=== PATIENT | female | born 1995 | race Caucasian/White ===

== ENCOUNTER 2017-12-02 03:55 | Inpatient (IN) | payer OTHER ==
[2017-12-02] MEDS ORDERED: OXYTOCIN/LR 20 UNITS/1,000 ML BAG IV SCH (04:00)
[2017-12-02] MEDS ORDERED: Ringers Lactate 1,000 ML IV SCH ×2 (04:00→05:00)
[2017-12-02] MEDS ORDERED: OXYTOCIN/LR 1,000 ML IV SCH (04:00)
[2017-12-02] MEDS ORDERED: Ringers Lactate 1,000 ML IV PRN ×2 (04:00→04:35)
[2017-12-02] MEDS ORDERED: PENICILLIN 5 MU in NA CHLORIDE 0.9% 100 ML IV ONE (04:00)
[2017-12-02] MEDS ORDERED: Ringers Lactate 1,000 ML IV ONE (04:41)
[2017-12-02] MEDS ORDERED: OXYTOCIN/LR 20 UNIT/1,000 ML BAG IV ONE (04:42)
[2017-12-02 04:54] LABS: RPR Titer ND
[2017-12-02 04:58] LABS: Absolute Lymphocytes (CBC) 2.8 K/uL (0.7-4.9); Absolute Monocytes 0.9 K/uL (0.1-1.3); Basophils % 0.5 % (0-1.3); Eosinophils % 0.8 % (0-4.4); Hematocrit 28.6 % (36.0-45.0); MCH 22.4 pg (27.0-35.0); MCV 72.5 fL (80-100); MPV 10.5 fL (7.6-11.3); RBC Red Blood Cell Count 3.95 M/uL (3.86-4.86)
[2017-12-02] MEDS ORDERED: PROMETHAZINE 25 MG/ML VIAL IM PRN (05:28)
[2017-12-02] MEDS ORDERED: CARBOPROST TROME 250 MCG/ML IM PRN (05:28)
[2017-12-02] MEDS ORDERED: MEPERIDINE HCL 25 MG/0.5 ML IV PRN (05:28)
[2017-12-02] MEDS ORDERED: METHYLERGONOVINE 0.2MG/ML AMP IM PRN (05:28)
[2017-12-02] MEDS ORDERED: BUTORPHANOL 1 MG/ML INJ IV PRN (05:28)
[2017-12-02 05:38] VITALS: BMI 37.8
[2017-12-02 05:48] LABS: Urine Appearance CLOUDY; Urine Bilirubin NEGATIVE (NEG); Urine Blood NEGATIVE (NEG); Urine Color YELLOW; Urine Glucose NEGATIVE (NEG); Urine Microscopic Reflex ORDER UMIC; Urine Protein TRACE (NEG); Urine Specific Gravity 1.025 (1.005-1.030)
[2017-12-02 05:58] LABS: Urine Bacteria >50 /HPF (<20); Urine Culture Reflex Order REFLEXED; Urine Mucus 1+ /HPF (NONE SEEN)
[2017-12-02] MEDS ORDERED: METHYLERGONOVINE 0.2MG/ML AMP IM ONE ×2 (08:55→11:33)
[2017-12-02] MEDS ORDERED: PENICILLIN 2.5 MU in NA CHLORIDE 0.9% 100 ML IV SCH (09:00)
[2017-12-02] MEDS ORDERED: LIDOCAINE 1% 20 ML MDV ONE (09:54)
[2017-12-02] MEDS ORDERED: IBUPROFEN 200 MG TAB PO PRN (10:32)
[2017-12-02] MEDS ORDERED: BISACODYL 10 MG RECTAL SUPP RECT PRN (10:32)
[2017-12-02] MEDS ORDERED: DOCUSATE NA/SENNA CONC 1 TAB PO PRN (10:32)
[2017-12-02] MEDS ORDERED: DIPHENHYDRAMINE 25 MG TAB/CAP PO PRN (10:32)
[2017-12-02] MEDS ORDERED: Oxycodone HCl/Acetaminophen 1 TAB TAB PO PRN (10:32)
[2017-12-02] MEDS ORDERED: ACETAMINOPHEN 500 MG TAB PO PRN (10:32)
[2017-12-02] MEDS ORDERED: OXYTOCIN/LR 20 UNIT/1,000 ML BAG IV SCH (11:00)
--- NOTE | 2017-12-02 12:01 | PREOPHP ---
Date of Admission: 12/02/2017 This is a 21-year-old 3, para 2, 39 weeks gestation 2.5 cm, 50% effaced, vertex, well applied -1 station. Emeterio regularly. FHTs normal, reactive. Rh positive, immune to Rubella. Positi ve beta strep screen. She has received her first dose of penicillin. Rupture of membranes, clear fl uid. The patient was trying to go natural although she may change her mind, and she knows she has th e ability to do so. She will probably request IV analgesics but wishes to try to avoid epidural. Ex pect a more rapid progress once she gets to 4-5 cm, and delivery sometime later today. FRANDY/ENEDINA Voice ID: [id number]
[2017-12-02] MEDS: Oxycodone HCl/Acetaminophen 1 TAB TAB PO PRN (20:00)
--- NOTE | 2017-12-02 22:34 | DS ---
This is a 21-year-old 3, para 2, 39 weeks gestation, 2.5 to 3 cm on admission, vertex well ap plied, -1 station, rupture of membranes, clear fluid. The patient had penicillin prophylaxis x2 dose s during the labor, 1 dose of Stadol IV, Phenergan IM, went rapidly to complete. Second stage of 10 minutes or less. Spontaneous vaginal delivery of an estimated 7-pound plus female infant, Apgars 9 a nd 9. No episiotomy. No laceration. Schultze delivery of the placenta, which was inspected and not ed to be intact and normal. Less than 300 cc blood loss. The patient tolerated all procedures well. Final Diagnoses: 1.Term intrauterine at 39 weeks. 2.Labor induction. 3.Vaginal delivery. 4.Penicillin prophylaxis. FRANDY/ENEDINA Voice ID: [id number] Report ID: [id number]
[2017-12-02 23:48] LABS: RPR (Rapid Plasma Reagin) NON-REACT (NON-REACT)
[2017-12-03] MEDS: Oxycodone HCl/Acetaminophen 1 TAB TAB PO PRN ×3 (00:38→13:20)
[2017-12-03 07:25] VITALS: TEMP 97.8
[2017-12-03] MEDS ORDERED: Tdap (Diph,Pertuss(Acell),Tet Vac) 0.5 ML SYR IMVAC ONE (09:18)
[2017-12-03 12:48] VITALS: BP 126/70
--- NOTE | 2017-12-04 06:27 | DS ---
Date of Discharge: 12/03/2017 Hospital Course: A 21-year-old 4, para 3, 39 weeks gestation, delivered a 7-pound plus femal e Apgars 9 and 9. No episiotomy. No laceration. Hitchcock delivery of the placenta, which was inspec maggi and noted to be intact and normal. Less than 300 cc blood loss. Penicillin prophylaxis x2. Pos tpartum, afebrile, ambulating, and voiding lochia is normal. She will be dismissed later this lyndsay g to report back to my office in 6 weeks for followup, to report any temperature elevation of 100 deg katie or greater, severe pain, heavy bleeding, or any other type of abnormalities. Rh positive, immun e to Rubella. Tdap administration has been suggested numerous times during the . She has h ad it before. Final Diagnoses: 1.Term uterine 39 weeks. 2.Vaginal delivery. 3.Penicillin prophylaxis. 4.Tdap offered. FRANDY/ENEDINA Voice ID: [id number] Report ID: [id number]
[2017-12-04 13:16] LABS: HBsAG Nonreactive (Nonreactive)
--- NOTE | 2017-12-15 07:29 | OP ---
Surgeon: Ishan Almonte MD Hospital Course: A 21-year-old 4, para 3, 39 weeks' gestation, came in for vaginal delivery, progressed well with no complications of mother or baby. Subsequently, delivered a 7-pound plus fem ailyn , Apgars 9 and 9. No episiotomy. No lacerations. Schultze delivery of the placenta, whic h was inspected and noted to be less than 300 cc blood loss. Penicillin prophylaxis x2 as the patien t was beta strep positive. Tolerated all procedures well. Rh positive. Immune to Rubella. Final Diagnoses: 1.Term intrauterine at 39 weeks. 2.Vaginal delivery. 3.Penicillin prophylaxis. FRANDY/ENEDINA Voice ID: [id number] Report ID: [id number]
== END 2017-12-03 13:40 | disposition home or self-care (01) | DRG 775 ==
LOC: 2ND-WC 03:55
PROVIDERS: ADMIT Specialist; ATTEND Specialist
PROC: 10907ZC Drainage of Amniotic Fluid, Therapeutic from Products of Conception, Via Natural or Artificial Opening (ICD-10-PCS; principal; 2017-12-02)
PROC: 10E0XZZ Delivery of Products of Conception, External Approach (ICD-10-PCS; 2017-12-02)
PROC: 3E033VJ Introduction of Other Hormone into Peripheral Vein, Percutaneous Approach (ICD-10-PCS; 2017-12-02)
DX: O99.824 Streptococcus B carrier state complicating childbirth (principal); Z3A.39 39 weeks gestation of pregnancy; Z37.0 Single live birth
CPT/HCPCS: 36415; 81003; 81015; 85025; 86592; 86901; 87086; 87088; 87340; J0595; J2210; J2550; J2590

== ENCOUNTER 2021-05-02 14:07 | Inpatient (IN) | payer OTHER ==
[2021-05-02] MEDS ORDERED: CARBOPROST TROME 250 MCG/ML IM PRN (14:23)
[2021-05-02] MEDS ORDERED: METHYLERGONOVINE 0.2MG/ML AMP IM PRN ×2 (14:23→20:31)
[2021-05-02] MEDS ORDERED: Ringers Lactate 1,000 ML IV PRN (14:23)
[2021-05-02] MEDS ORDERED: NA CIT/CITRIC AC 30 ML ORAL UDC PO ONE (14:30)
[2021-05-02] MEDS ORDERED: Ringers Lactate 2,000 ML IV ONE (14:36)
[2021-05-02] MEDS ORDERED: CEFAZOLIN 2 GM in NA CHLORIDE 0.9% 100 ML IVPB SCH (15:00)
[2021-05-02] MEDS ORDERED: METOCLOPRAMIDE 10 MG/2mL INJ IV SCH (15:00)
[2021-05-02] MEDS ORDERED: OXYTOCIN/LR 20 UNIT/1,000 ML BAG IV SCH (15:00)
[2021-05-02] MEDS ORDERED: Ringers Lactate 1,000 ML IV SCH (15:00)
[2021-05-02 15:39] LABS: Absolute Lymphocytes (CBC) 1.7 K/uL (0.7-4.9); Basophils % 0.4 % (0-1.3); Hematocrit 24.6 % (36.0-45.0); Lymphocytes % 12.7 % (15.3-44.8); Urine Appearance CLEAR (Clear); Urine Bilirubin NEGATIVE (Negative); Urine Blood NEGATIVE (Negative); Urine Color YELLOW (Yellow); Urine Glucose NEGATIVE (Negative); Urine Protein NEGATIVE (Negative); Urine Specific Gravity 1.015 (1.005-1.030)
[2021-05-02] MEDS ORDERED: FAMOTIDINE 20 MG/2 ML VIAL IV ONE (15:54)
[2021-05-02 16:10] LABS: Urine Microscopic Reflex ORDER UMIC
[2021-05-02 16:11] LABS: Blood Morphology Comment NOTED (NOT SEEN); Hypochromasia 2+; Platelet Estimate ADEQ; White Blood Cell Scan OK (OK)
[2021-05-02 16:17] LABS: Urine Bacteria 20-50 /HPF (<20); Urine Mucus 1+ /HPF (NONE SEEN); Urine RBC <5 /HPF (NONE SEEN)
--- NOTE | 2021-05-02 17:20 | PREOPHP ---
Date of Admission: 05/02/2021 History Of Present Illness: This is a 25-year-old, 4, para 3, at 37 weeks and 4 days, follow ed antepartum without complications until late in the when she was noted to have oligohydra mnios worsening. She was sent to [place] today to Dr. Servin in [facility], who sa id that the oligohydramnios was worsening and there was resistance to blood flow through the placenta and he recommended immediate delivery within the next 24 hours. The patient came back down here. H er cervix is extremely unfavorable, 1 cm at best, very long, basically no effacement. Baby is vertex , still high in the pelvis. We discussed options including Cytotec insertions every 6 hours for 3 do ses and then attempted induction tomorrow after ripening. Pros and cons of whether the baby could to lerate labor discussed with the patient. Said if we put into Cytotec of course, she had significant contractions. If we could not remove the Cytotec, we would have to do an emergent , but that was probably unlikely. On the other hand, we could proceed with . Infection; blood loss; a nesthetic complications; injury to bladder, bowel, ureter; postoperative complications; clots in legs ; and pneumonia were discussed. The patient knows fully well this does not constitute all the possib le problems that could occur during or following surgery. The patient and her conferred in p rivate and then decided they wished to proceed with because the patient had a taco earlier t his today. We will wait until start contents of cleared and then proceed with section. Family History: Basically clear. No diabetes, heart attacks, cancers noted in the family. Allergies: THE PATIENT HAS NO ALLERGIES. Physical Examination: HEENT: Clear. Pupils equal, round, and reactive to light and accommodation. Conjunctivae well perf used. No oral, lingual, or buccal lesions. Chest and Lungs: Clear. Heart: Without murmurs, thrills, heaves, or rubs on previous visits. Abdomen: Appropriate for gestational age. Extremities: Clear without edema, cyanosis, or clubbing. Pelvic exam: As stated a very unfavorable cervix and the vertex presented very high station. Assessment And Plan: We will proceed with section within the next 2-3 hours. FRANDY/ENEDINA Voice ID: [id number]
[2021-05-02 17:28] VITALS: BMI 37.6
[2021-05-02 18:01] LABS: Protime INR 0.99
[2021-05-02] MEDS: FAMOTIDINE 20 MG/2 ML VIAL IV ONE ×2 (18:22→22:27)
[2021-05-02] MEDS ORDERED: MORPHINE SULFATE/PF 1 MG/ML (10 ML AMP) ONE (19:03)
[2021-05-02] MEDS ORDERED: LIDOCAINE 1.5% W/EPI AMP 5 ML ONE (19:10)
[2021-05-02] MEDS ORDERED: OXYTOCIN 10 UNIT/ML ML ONE ×2 (19:10→19:52)
[2021-05-02] MEDS ORDERED: BUPIVACAINE 0.5% PF 10 ML VIAL ONE (19:10)
[2021-05-02] MEDS ORDERED: Phenylephrine HCl 10 MG/ML 1 ML VIAL ONE (19:41)
[2021-05-02] MEDS ORDERED: ONDANSETRON 4 MG/2 ML VIAL ONE (20:08)
[2021-05-02] MEDS ORDERED: KETOROLAC 30 MG/ML INJ IM PRN (20:31)
[2021-05-02] MEDS ORDERED: Oxycodone HCl/Acetaminophen 1 TAB TAB PO PRN (20:31)
[2021-05-02] MEDS ORDERED: ONDANSETRON 4 MG (ODT) TAB PO PRN (20:31)
[2021-05-02] MEDS ORDERED: ACETAMINOPHEN 500 MG TAB PO PRN ×2 (20:31)
[2021-05-02] MEDS ORDERED: ONDANSETRON 4 MG/2 ML VIAL IV PRN (20:31)
[2021-05-02] MEDS ORDERED: KETOROLAC 30 MG/ML INJ IV PRN (20:31)
[2021-05-02] MEDS ORDERED: BISACODYL 10 MG RECTAL SUPP PR PRN (20:31)
[2021-05-02] MEDS ORDERED: D5LR 1,000 ML with OXYTOCIN 20 UNIT IV SCH ×2 (21:00)
[2021-05-02] MEDS: METHYLERGONOVINE 0.2 MG TAB PO PRN (21:00)
[2021-05-02] MEDS ORDERED: OXYTOCIN/LR 20 UNITS/1,000 ML BAG IV SCH (21:00)
[2021-05-02] MEDS: DIPHENHYDRAMINE 25 MG TAB/CAP PO PRN (21:00)
[2021-05-02] MEDS ORDERED: METHYLERGONOVINE 0.2 MG TAB PO ONE (21:27)
[2021-05-03] MEDS ORDERED: CEFAZOLIN 2 GM in NA CHLORIDE 0.9% 100 ML IVPB SCH (01:00)
[2021-05-03] MEDS: METHYLERGONOVINE 0.2 MG TAB PO PRN ×3 (01:05→08:29)
[2021-05-03] MEDS ORDERED: OXYTOCIN 10 UNIT/ML ML ONE ×2 (01:28→09:36)
[2021-05-03] MEDS ORDERED: Ringers Lactate 1,000 ML IV ONE (01:28)
--- NOTE | 2021-05-03 02:36 | OP ---
Surgeon: Ishan Almonte MD Indications: Kristy Kline is a 25-year-old, 4, para 3, followed antepartum, noted to wren ve severe oligohydramnios. Consultation with Dr. Servin, high-market risk manager in [place], early this morning recommended delivery within 24 hours. perfusion was decreased, unfavorable cervix. P atient elected to go with section. Infection; blood loss; anesthetic complications; injury to bladder, bowel, ureter; postoperative complications; clots in legs; pneumonia discussed. The gaby ent knows fully well this does not constitute all the possible problems that could occur during or fo llowing surgery. Description Of Procedure: After spinal block anesthesia, prepping and draping and time-out was perfo rmed, Pfannenstiel incision was created. Incision was carried to the fascia. Fascia was incised and incision carried transversely bilaterally. Anterior fascial plane was developed with both blunt and sharp dissection. Peritoneum was entered. Low transverse bladder flap was developed. Low transver se uterine incision created. A 6-pound 11-ounce male was delivered. Vacuum suction was used to effe ct easy delivery. Apgars 9 and 9. Cord blood specimen obtained. Placenta removed manually. Uterus cleared of clot and blood and exteriorized. Methergine had been given immediately after delivery of the baby as the patient's hematocrit on admission was 25. She admits she has not been taking any pr enatal vitamins or iron for some months now. Uterus contracted down well. Estimated blood loss duri ng the procedure 750 cc. Cervical os dilated with ring clamp. Uterus closed with a running locked s titch of 1 chromic followed by imbricating stitch of 1 chromic from the midline to the right angle. Gutters cleared of clot and blood. No further bleeding seen. Uterus replaced in the peritoneal cavi ty. Further inspection of suture line showed no further bleeding. The muscles were reapproximated u sing 0 Vicryl 2 interrupted stitches, brought the muscles together well. 1 PDS was used to close the fascia running from either angle to the midline. Subcutaneous tissue closed with 2-0 plain. Staple s used for the skin. Patient had been given 2 g of Ancef. Tolerated all procedures well. Transferr ed back to her room in good condition. Final Diagnoses: Oligohydramnios, intrauterine gestation at 37 weeks 4 days, extremely unfavorable c ervix, decreased perfusion. Recommended delivery by high-market risk manager, [place] [facility] Dr. Gareth dahl. FRANDY/ENEDINA Voice ID: [id number] Report ID: [id number]
[2021-05-03] MEDS: IBUPROFEN 200 MG TAB PO PRN (08:28)
[2021-05-03] MEDS: DIPHENHYDRAMINE 25 MG TAB/CAP PO PRN (08:28)
--- NOTE | 2021-05-03 09:51 | PN ---
Evelyn Escotoudreaux postoperatively has done quite well. H and H with basically no change. Lochia is normal. The patient is quite alert. We will discontinue her Ramos and IV sometime this morning, beg in oral intake. The patient encouraged to ambulate. Full postoperative talk given. She is encourag ed to get her immunizations, Tdap, flu shot, COVID immunizations if she has not already had these. N o complaints or problems other than pruritus this morning, which of course is associated with a spina l block. Doing well. Anticipate dismissal tomorrow. FRANDY/ENEDINA Voice ID: [id number] Report ID: [id number]
[2021-05-03] MEDS ORDERED: CEFAZOLIN/NS 1gm 1 GM/50 ML BAG IVPB ONE (10:30)
[2021-05-03] MEDS: Oxycodone HCl/Acetaminophen 1 TAB TAB PO PRN ×2 (15:18→20:56)
[2021-05-03] MEDS ORDERED: MAGNESIUM HYDROXIDE 8% 30 ML PO PRN (20:31)
[2021-05-03 21:48] LABS: RPR (Rapid Plasma Reagin) NON-REACT (NON-REACT)
[2021-05-04] MEDS: Oxycodone HCl/Acetaminophen 1 TAB TAB PO PRN ×2 (01:56→07:31)
[2021-05-04] MEDS: IBUPROFEN 200 MG TAB PO PRN (02:58)
[2021-05-04 08:25] VITALS: BP 107/54; TEMP 97.5
--- NOTE | 2021-05-04 08:27 | DS ---
Evelyn Kline is a 25-year-old, 4, para 3, at 37 weeks 4 days, noted to have severe oligo hydramnios, was seen by Dr. Servin, high-market risk manager, [facility], who also noti kev decreased placental blood flow to the baby and recommended immediate delivery, very unfavorable c ervix. Pros and cons of Cytotec discussed with the patient. She chose to go with . Infecti on; blood loss; anesthetic complications; injury to bladder, bowel, ureter; postoperative complicatio ns; clots in legs; and pneumonia discussed. Patient knows fully well. This does not constitute all the possible problems that could occur during or following surgery. Underwent primary secti on low transverse, cervical spinal block anesthesia, delivered a 6 pounds 11-ounce male, 's of 9 and 9. 750 mL blood loss. Ancef for prophylaxis pre and postop. The patient was admitted with a l ow hematocrit of 24.6, postoperatively it was 24. She admitted, not taking any vitamins or iron during the second half of her . This has been discussed with the patient. No post spi nal block problems. She is offered Tdap, flu shot, and COVID vaccinations if she chooses. Dismissed with tramadol for analgesia. To be seen in my office in 1 week to report any temperature elevation of 100 degrees or greater, severe pain, heavy bleeding, or any other type of abnormalities. She is R h positive, immune to Rubella. Final Diagnoses: Intrauterine gestation, 37 weeks 4 days, severe oligohydramnios, decreased blood fl ow to the baby, very unfavorable cervix, primary section, spinal block anesthesia. Immuniza tions offered. FRANDY/ENEDINA Voice ID: [id number] Report ID: [id number]
[2021-05-04 20:54] LABS: HBsAG Nonreactive (Nonreactive)
== END 2021-05-04 09:25 | disposition home or self-care (01) | DRG 786 ==
LOC: 2ND-WC 14:07
PROVIDERS: ADMIT Specialist; ATTEND Specialist
PROC: 10D00Z1 Extraction of Products of Conception, Low, Open Approach (ICD-10-PCS; principal; 2021-05-02 19:00)
DX: O41.03X0 Oligohydramnios, third trimester, not applicable or unspecified (principal); O34.33 Maternal care for cervical incompetence, third trimester; O77.8 Labor and delivery complicated by other evidence of fetal stress; Z3A.37 37 weeks gestation of pregnancy; Z37.0 Single live birth; Z20.822 Contact with and (suspected) exposure to COVID-19
CPT/HCPCS: 36415; 76819; 81003; 81015; 85014; 85025; 85610; 85730; 86592; 86850; 86900; 86901; 87086; 87088; 87340; 88307; J0690; J2210; J2370; J2405; J2765; J7120; U0003

== ENCOUNTER 2022-06-24 15:24 | Emergency (ER) | payer OTHER ==
[2022-06-24 16:01] LABS: Absolute Lymphocytes (CBC) 2.4 K/uL (0.7-4.9); Lymphocytes % 31.6 % (15.3-44.8); MPV 8.7 fL (7.6-11.3); RBC Red Blood Cell Count 4.58 M/uL (3.86-4.86)
[2022-06-24] MEDS ORDERED: KETOROLAC 30 MG/ML INJ ONE (16:04)
[2022-06-24 16:05] LABS: Blood Morphology Comment NOTED (NOT SEEN); Platelet Estimate ADEQ; White Blood Cell Scan OK (OK)
[2022-06-24 16:06] LABS: Hypochromasia 2+
--- NOTE | 2022-06-24 16:08 | RAD REPORT ---
EXAM DESCRIPTION: RAD - Chest Single View - 06/24/2022 4:02 pm CLINICAL HISTORY: CHEST PAIN Chest pain. COMPARISON: No comparisons FINDINGS: Portable technique limits examination quality. The lungs are grossly clear. The heart is normal in size. No displaced fractures. IMPRESSION: No acute intrathoracic process suspected.
[2022-06-24 16:17] LABS: Urine Blood Negative (Negative); Urine Glucose Negative (Negative); Urine Protein Negative (Negative)
[2022-06-24 16:22] LABS: Magnesium 2.4 mg/dL (1.8-2.4); Potassium 3.6 mmol/L (3.5-5.1); Troponin High Sensitivity 4.5 pg/mL (<58.9)
[2022-06-24 16:40] LABS: Barbiturates NEGATIVE (NEGATIVE); Benzodiazepines NEGATIVE (NEGATIVE); Cocaine NEGATIVE (NEGATIVE); METHAMPHETAM NEGATIVE (NEGATIVE); Methadone NEGATIVE (NEGATIVE); Opiates NEGATIVE (NEGATIVE); Phencyclidine NEGATIVE (NEGATIVE); THC Cannibis POSITIVE (NEGATIVE)
--- NOTE | 2022-06-24 17:12 | ER ---
Nurse's Notes [facility] Name: Kristy Kline Age: 26 yrs Sex: Female : 1995 Arrival Date: 06/24/2022 Time: 15:27 Bed 17 Private MD: Diagnosis: Chest pain, unspecified;Anemia, unspecified Presentation: 06/24 15:33 Chief complaint: Patient states: Intermittent chest pain - on and off for 3 months. ld1 States "It gets worse when I am anxious or stressed out.". Coronavirus screen: At this time, the client does not indicate any symptoms associated with coronavirus-19. Ebola Screen: No symptoms or risks identified at this time. Initial Sepsis Screen: Does the patient meet any 2 criteria? No. Patient's initial sepsis screen is negative. Does the patient have a suspected source of infection? No. Patient's initial sepsis screen is negative. Risk Assessment: Do you want to hurt yourself or someone else? Patient reports no desire to harm self or others. Onset of symptoms was June 24, 2022. 15:33 Method Of Arrival: Ambulatory ld1 15:33 Acuity: TABATHA 3 ld1 Triage Assessment: 15:34 General: Appears in no apparent distress. comfortable, Behavior is calm, cooperative, ld1 appropriate for age. Pain: Complains of pain in chest Pain does not radiate. Pain currently is 7 out of 10 on a pain scale. Quality of pain is described as sharp, shooting, Pain began 2-3 months ago Is intermittent. EENT: No signs and/or symptoms were reported regarding the EENT system. Neuro: Level of Consciousness is awake, alert, obeys commands, Oriented to person, place, time, situation. Cardiovascular: Capillary refill < 3 seconds Patient's skin is warm and dry. Cardiovascular: Reports chest pain. Respiratory: Airway is patent Respiratory effort is even, unlabored. GI: Abdomen is round non-distended. 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 - Social history:: Smoking status: Patient denies any tobacco usage or history of. Patient/guardian denies using alcohol. Screenin:19 Abuse screen: Denies threats or abuse. Denies injuries from another. Nutritional tp1 screening: No deficits noted. Tuberculosis screening: No symptoms or risk factors identified. Fall Risk None identified. Assessment: 15:50 General: Appears in no apparent distress. comfortable, Behavior is calm, cooperative. tp1 Pain: Complains of pain in chest Pain radiates to back and left arm Pain currently is 7 out of 10 on a pain scale. Quality of pain is described as sharp, Is intermittent. Neuro: Level of Consciousness is awake, alert, obeys commands, Oriented to person, place, time, situation. Neuro: Reports dizziness, headache. Cardiovascular: Patient's skin is warm and dry. Cardiovascular: Reports shortness of breath. Respiratory: Airway is patent Respiratory effort is even, unlabored. GI: No signs and/or symptoms were reported involving the gastrointestinal system. : No signs and/or symptoms were reported regarding the genitourinary system. EENT: No signs and/or symptoms were reported regarding the EENT system. Derm: Skin is pink, warm \\T\\ dry. Musculoskeletal: Circulation, motion, and sensation intact. 17:11 Reassessment: Patient appears in no apparent distress at this time. No changes from tp1 previously documented assessment. Patient and/or family updated on plan of care and expected duration. Pain level reassessed. Patient is alert, oriented x 3, equal unlabored respirations, skin warm/dry/pink. Patient denies pain at this time. Vital Signs: 15:33 BP 122 / 63; Pulse 87; Resp 20; Temp 97.7(O); Pulse Ox 100% on R/A; Weight 86.18 kg; ld1 Height 5 ft. 2 in. (157.48 cm); Pain 7/10; 17:12 BP 160 / 67; Pulse 72; Resp 21; Pulse Ox 100% on R/A; tp1 15:33 Body Mass Index 34.75 (86.18 kg, 157.48 cm) ld1 ED Course: 15:27 Patient arrived in ED. as 15:27 Jermaine Pedraza PA is PHCP. cp 15:27 Benny Carranza MD is Attending Physician. cp 15:34 Triage completed. ld1 15:34 Arm band placed on right wrist. ld1 15:38 Evelyn Ornelas, RN is Primary Nurse. tp1 15:59 Patient has correct armband on for positive identification. Bed in low position. Call tp1 light in reach. Client placed on continuous cardiac and pulse oximetry monitoring. NIBP monitoring applied. 16:00 Inserted saline lock: 20 gauge in left antecubital area, using aseptic technique. Blood tp1 collected. 16:03 XRAY Chest (1 view) In Process Unspecified. EDMS 16:19 No provider procedures requiring assistance completed. EKG done. Patient maintains SpO2 tp1 saturation greater than 95% on room air. 16:20 Urine --Ancillary (enter results) Sent. tp1 17:17 IV discontinued, intact, bleeding controlled, No redness/swelling at site. Pressure tp1 dressing applied. Administered Medications: 16:05 Drug: Ketorolac 15 mg Route: IVP; Site: left antecubital; tp1 17:13 Follow up: Response: Pain is decreased tp1 Medication: 16:19 VIS not applicable for this client. tp1 Outcome: 17:11 Discharge ordered by . cp 17:17 Discharged to home ambulatory. tp1 17:17 Condition: good 17:17 Discharge instructions given to patient, Instructed on discharge instructions, follow up and referral plans. medication usage, Demonstrated understanding of instructions, follow-up care, medications, Prescriptions given X 2. 17:18 Patient left the ED. tp1 Signatures: Dispatcher [employer] EDEloisa Mon Corey, PA PA cp Kendra Booth RN RN ld1 Evelyn Ornelas RN RN tp1
--- NOTE | 2022-06-24 17:12 | EDPHYS ---
Physician Documentation [facility] Name: Kristy Kline Age: 26 yrs Sex: Female : 1995 Arrival Date: 06/24/2022 Time: 15:27 Bed 17 Private MD: ED Physician Benny Carranza HPI: 06/24 15:45 This 26 yrs old Female presents to ER via Ambulatory with complaints of Chest Pain. cp 15:45 The patient or guardian reports chest pain that is located primarily in the anterior cp chest wall, left. 15:45 The pain radiates to the left shoulder, left back. cp 15:45 Associated signs and symptoms: Pertinent positives: shortness of breath, Pertinent cp negatives: abdominal pain, cough, diaphoresis, lower extremity pain, lower extremity swelling, syncope. The chest pain is described as sharp. Duration: The patient or guardian reports multiple episodes, that are intermittent, for past 3 months. Modifying factors: the symptoms are aggravated by emotionally stressful situations. 15:45 Severity of pain: in the emergency department the pain has improved markedly. 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 - Social history:: Smoking status: Patient denies any tobacco usage or history of. Patient/guardian denies using alcohol. ROS: 15:48 Constitutional: Negative for body aches, chills, fever, poor PO intake. cp 15:48 Cardiovascular: Positive for chest pain. cp Exam: 15:50 ECG was reviewed by the Attending Physician. cp 15:53 Constitutional: The patient appears in no acute distress, alert, awake, cp non-diaphoretic, non-toxic, well developed, well nourished. 15:53 Head/Face: Normocephalic, atraumatic. cp 15:53 Eyes: Periorbital structures: appear normal, Conjunctiva: normal, no exudate, no injection, Sclera: no appreciated abnormality, Lids and lashes: appear normal, bilaterally. 15:53 ENT: External ear(s): are unremarkable, Nose: is normal, Mouth: Lips: moist, Oral mucosa: pink and intact, moist, Posterior pharynx: Airway: no evidence of obstruction, patent, swelling, is not appreciated, erythema, is not appreciated, exudate, is not appreciated. 15:53 Neck: ROM/movement: is normal, is supple, no meningismus, no nuchal rigidity. 15:53 Chest/axilla: Inspection: normal. 15:53 Cardiovascular: Rate: normal, Rhythm: regular, Edema: is not appreciated, JVD: is not appreciated. 15:53 Respiratory: the patient does not display signs of respiratory distress, Respirations: normal, no use of accessory muscles, no retractions, labored breathing, is not present, Breath sounds: are clear throughout, no decreased breath sounds, no stridor, no wheezing. 15:53 Abdomen/GI: Inspection: abdomen appears normal, Palpation: abdomen is soft and non-tender, in all quadrants. 15:53 Back: pain, that is mild, of the left scapular area and left subscapular area, ROM is normal. 15:53 Musculoskeletal/extremity: DVT Exam: no pain, no swelling, no tenderness. 15:53 Skin: no rash present. 15:53 Neuro: Orientation: to person, place \T\ time. Mentation: is normal, Motor: moves all fours, strength is normal, Sensation: is normal. Vital Signs: 15:33 BP 122 / 63; Pulse 87; Resp 20; Temp 97.7(O); Pulse Ox 100% on R/A; Weight 86.18 kg; ld1 Height 5 ft. 2 in. (157.48 cm); Pain 7/10; 17:12 BP 160 / 67; Pulse 72; Resp 21; Pulse Ox 100% on R/A; tp1 15:33 Body Mass Index 34.75 (86.18 kg, 157.48 cm) ld1 MDM: 15:28 Patient medically screened. cp 16:00 Differential diagnosis: abnormal EKG, acute myocardial infarction, acute pericarditis, cp chest wall pain, pericarditis, pleurisy, pneumonia, pneumothorax, pulmonary embolus. 17:05 Data reviewed: vital signs, nurses notes, lab test result(s), EKG, radiologic studies, cp plain films. Test interpretation: by ED physician or midlevel provider: ECG, plain radiologic studies. ED course: Discussed results of labs, EKG and chest xray. Patient informed of labs showing anemia and that most likely cause is iron deficiency. Patient denies any dark colored and/or blood in stools, heavy menstrual bleeding. Will discharge to home with references for pcp to f/u and short course of iron supplement. 06/24 15:35 Order name: Basic Metabolic Panel; Complete Time: 16:40 06/24 15:35 Order name: CBC with Diff; Complete Time: 16:40 06/24 16:40 Interpretation: Normal except: HGB 8.5; HCT 28.0; MCV 61.0; MCH 18.4; MCHC 30.2; RDW cp 19.1. 06/24 15:35 Order name: D-Dimer; Complete Time: 16:40 06/24 15:35 Order name: Magnesium; Complete Time: 16:40 06/24 15:35 Order name: Troponin HS; Complete Time: 16:40 06/24 15:35 Order name: UDS; Complete Time: 16:43 06/24 16:43 Interpretation: Normal except: THC POSITIVE. 06/24 15:35 Order name: XRAY Chest (1 view); Complete Time: 16:40 06/24 15:35 Order name: EKG; Complete Time: 15:36 06/24 15:35 Order name: Cardiac monitoring; Complete Time: 15:58 06/24 15:35 Order name: EKG - Nurse/Tech; Complete Time: 15:58 06/24 16:06 Order name: CBC Smear Scan; Complete Time: 16:40 EDIN 06/24 16:17 Order name: Urine Dipstick-Ancillary; Complete Time: 16:40 EDIN 06/24 16:18 Order name: Urine --Ancillary (enter results); Complete Time: 16:40 bd 06/24 15:35 Order name: IV Saline Lock; Complete Time: 15:58 06/24 15:35 Order name: Labs collected and sent; Complete Time: 15:58 06/24 15:35 Order name: O2 Per Protocol; Complete Time: 15:58 06/24 15:35 Order name: O2 Sat Monitoring; Complete Time: 15:58 06/24 15:35 Order name: Urine Dipstick-Ancillary (obtain specimen); Complete Time: 16:11 cp 06/24 15:35 Order name: Urine Test (obtain specimen); Complete Time: 16:11 cp EC:50 Rate is 67 beats/min. Rhythm is regular. NE interval is normal. QRS interval is normal. cp QT interval is normal. T waves are Inverted in lead aVR. Interpreted by me. Reviewed by me. 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 I agree with assessment jr11 and care plan and confirm the diagnosis (es) above. Attestation: The patient's history, exam findings, diagnostics, and a summary of any interventions or procedures was reviewed in detail with Jermaine ARCHIBALD. Disposition Summary: 06/24/22 17:11 Discharge Ordered Location: Home cp Problem: new cp Symptoms: have improved cp Condition: Stable cp Diagnosis - Chest pain, unspecified cp - Anemia, unspecified cp Followup: cp - With: Private Physician - When: 2 - 3 days - Reason: Recheck today's complaints Discharge Instructions: - Discharge Summary Sheet cp - Anemia cp - Nonspecific Chest Pain, Adult cp Forms: - Medication Reconciliation Form cp - Thank You Letter cp - Antibiotic Education cp - Prescription Opioid Use cp Prescriptions: - Ferrous Sulfate 325 mg (65 mg Iron) Oral Tablet - take 1 tablet by ORAL route every 12 hours; 40 tablet; Refills: 0, Product cp Selection Permitted - Ibuprofen 800 mg Oral Tablet - take 1 tablet by ORAL route every 8 hours As needed take with food; 30 tablet; cp Refills: 0, Product Selection Permitted Signatures: Dispatcher [employer] EDIN Jermaine Pedraza PA PA cp Kendra Booth RN RN ld1 Evelyn Ornelas RN RN tp1 Benny Carranza MD MD jr11
[2022-06-24 17:23] VITALS: TEMP 97.7; O2SAT 100
[2022-06-24 17:24] VITALS: BP 160/67
--- NOTE | 2022-06-25 16:26 | EKG ---
Test Date: 2022-06-24 Test Time: 15:45:04 Accounting Director: JOAQUINA MEASUREMENT RESULTS: Intervals: Rate: 67 GA: 168 QRSD: 92 QT: 416 QTc: 439 [place]: P: 59 GA: 168 QRS: 81 T: 50 INTERPRETIVE STATEMENTS: Normal sinus rhythm Normal ECG No previous ECG available for comparison Electronically Signed On 06-25-22 16:23:06 BULB SORTER by Reece Cummings
== END 2022-06-24 17:18 | disposition home or self-care (01) ==
LOC: ER 15:24
DX: R07.89 Other chest pain (principal); D64.9 Anemia, unspecified
CPT/HCPCS: 36415; 71045; 80048; 80307; 81003; 81025; 83735; 84484; 85025; 85379; 93005; 96374; 99284

== ENCOUNTER 2022-08-26 12:20 | Emergency (ER) | payer OTHER ==
--- OUTSIDE RECORDS SUMMARY | 2022-08-26 12:24 | XMS REPORT | Continuity of Care Document ---
:1995 Author Organization Formerly [facility] t Address [address] [place] [address] Care Team Providers Name Role Phone PENG THOMAS Primary Care Physician Unavailable PENG THOMAS Attending Clinician Unavailable PENG THOMAS Attending Clinician Unavailable 2, [facility] Attending Clinician Unavailable Doctor Unassigned, [place] Attending Clinician Unavailable Anna Souza NP Attending Clinician ANNA SOUZA Attending Clinician Unavailable ANNA SOUZA Admitting Clinician Unavailable Payers Payer Name Policy Type Policy Number Effective Date Expiration Date [facility] [id number] 2022 CHOICE [place] STAR 00:00:00 Problems Condition Condition Condition Status Onset Resolution Last Treating Co mments Source Name Details Category Date Date Treatment Clinician Date History of History of Disease Active U nivers anemia anemia 1-11 ity of 00:00: [place] [address] Medical Branch Left-sided Left-sided Disease Active U nivers chest wall chest wall 1-11 it y of pain pain 00:00: [place] [address] Medical Branch ASCUS of ASCUS of Disease Active Unive rs cervix cervix 1-11 ity of with with 00:00: [place] negative negative 00 Medica l high risk high risk Bran ch HPV HPV Rash and Rash and Disease Active Unive rs other other 1-11 ity of nonspecifi nonspecifi [place] c skin c skin 00 Medical eruption eruption Branch Screening Screening Disease Active 2021-07 Uni vers for for 2-05 [place] of malignant malignant [place] ne[place] Medica [place] of the of the Branch cervix cervix Pain Pain Disease Active 2021-07 Univers pelvic pelvic 2-05 ity of 00:00: [place] [address] Medical Branch Iron Iron Disease Active 2021-07 Univers deficiency deficiency 2-05 it y of anemia, anemia, 00:00: [place] unspecifie unspecifie 00 Me dical d iron d iron Branch deficiency deficiency anemia anemia type type BMI BMI Disease Active 2021-07 Univers 34.0-34.9, 34.0-34.9, 2-05 it y of adult adult 00:00: [place] [facility] Screen for Screen for Disease Active 2021-07 U nivers STD STD 2-05 ity of (sexually (sexually [place] transmitte transmitte 00 Me dical d disease) d disease) Br anch Multiparit Multiparit Disease Active U nivers y y 7-18 ity of 00:00: [place] [facility] Supervisio Supervisio Disease Active U nivers n of high n of high 7-18 ity of risk risk 00:00: [place] , , 00 Me dical antepartum antepartum Br anch Obesity Obesity Disease Active Univers affecting affecting 7-18 [place] Screening Screening Disease Active Overview: Univers breast breast 3-31 Formattin ity of examinatio examinatio 00:00: g of this [place] n n 00 note Medical might be Branch different from the original. ICD10 Diagnosis Term Clinical Nurse Reviewer Utility Allergies, Adverse Reactions, Alerts Allergy Allergy Status Severity Reaction(s) Onset Inactive Treating Comm ents Source Name Type Date Date Clinician NO KNOWN Drug Active Univers ALLERGIE Class ity of S [facility] Social History Social Habit Start Date Stop Date Quantity Comments Source Exposure to 2022-08-03 2022-08-13 Not sure [facility] SARS-CoV-2 00:00:00 13:28:00 [facility] (event) Branch Alcohol intake 2022-08-13 2022-08-13 Lifetime University of 00:00:00 00:00:00 non-drinker [facility] ([facility]) [place] Tobacco use and 2014-03-20 2014-03-20 Smokeless tobacco Un iversity of exposure 00:00:00 00:00:00 non-user [facility] Sex Ass[birth year] At [birth year] Universit y of 00:00:00 00:00:00 [facility] Smoking Status Start Date Stop Date Source Never smoked tobacco [facility] Medications Ordered Filled Start Stop Current Ordering Indication Dosage Frequency Signature Comments Components Source Medication Medication Date Date Medication? Clinician (SIG) Name Name busPIRone 2023-0 Yes [id number] 10mg Take 1 Un christ 10 mg 1-18 tablet by ity of tablet 00:00: mouth in [place] [address] the Medical morning Branch and 1 tablet in the evening. busPIRone 2023-0 Yes [id number] 10mg Take 1 Un christ 10 mg 1-18 tablet by ity of tablet 00:00: mouth in [place] [address] the Medical morning Branch and 1 tablet in the evening. busPIRone 2023-0 Yes [id number] 10mg Take 1 Un christ 10 mg 1-18 tablet by ity of tablet 00:00: mouth in [place] [address] the Medical morning Branch and 1 tablet in the evening. triamcinolo 2023-0 Yes [id number] Apply to [facility] -11 area(s) 2 ity of acetonide 00:00: (two) [place] 0.1 % cream 00 times Medical daily. Branch triamcinolo 2023-0 Yes [id number] Apply to [facility] -11 area(s) 2 ity of acetonide 00:00: (two) [place] 0.1 % cream 00 times Medical daily. Branch triamcinolo 2023-0 Yes [id number] Apply to [facility] -11 area(s) 2 ity of acetonide 00:00: (two) [place] 0.1 % cream 00 times Medical daily. Branch triamcinolo 2023-0 2023- No [id number] Apply to [facility] -08-13 area(s) 2 ity of acetonide 00:00: 00:00 (two) [place] 0.1 % cream 00 :00 times Medical daily. Branch triamcinolo 2023-0 2023- No [id number] Apply to [facility] -08-13 area(s) 2 ity of acetonide 00:00: 00:00 (two) [place] 0.1 % cream 00 :00 times Medical daily. Branch ferrous 2021-07 Yes [id number] 325mg Take 1 Uni vers sulfate 2-05 tablet by ity of (FEOSOL) 00:00: mouth in [place] 325 mg (65 00 the Medical mg iron) morning Branch tablet and 1 tablet in the evening. ascorbic 2021-07 Yes [id number] 500mg Take 1 Un christ acid, 2-05 tablet by ity of vitamin C, 00:00: mouth in [place] 500 mg 00 the Medical tablet morning Branch and 1 tablet in the evening. ferrous 2021-07 Yes [id number] 325mg Take 1 Uni vers sulfate 2-05 tablet by ity of (FEOSOL) 00:00: mouth in [place] 325 mg (65 00 the Medical mg iron) morning Branch tablet and 1 tablet in the evening. ascorbic 2021-07 Yes [id number] 500mg Take 1 Un christ acid, 2-05 tablet by ity of vitamin C, 00:00: mouth in [place] 500 mg 00 the Medical tablet morning Branch and 1 tablet in the evening. ferrous 2021-07 Yes [id number] 325mg Take 1 Uni vers sulfate 2-05 tablet by ity of (FEOSOL) 00:00: mouth in [place] 325 mg (65 00 the Medical mg iron) morning Branch tablet and 1 tablet in the evening. ascorbic 2021-07 Yes [id number] 500mg Take 1 Un christ acid, 2-05 tablet by ity of vitamin C, 00:00: mouth in [place] 500 mg 00 the Medical tablet morning Branch and 1 tablet in the evening. ferrous 2021-07 Yes [id number] 325mg Take 1 Uni vers sulfate 2-05 tablet by ity of (FEOSOL) 00:00: mouth in [place] 325 mg (65 00 the Medical mg iron) morning Branch tablet and 1 tablet in the evening. ascorbic 2021-07 Yes [id number] 500mg Take 1 Un christ acid, 2-05 tablet by ity of vitamin C, 00:00: mouth in [place] 500 mg 00 the Medical tablet morning Branch and 1 tablet in the evening. ferrous 2021-07 Yes [id number] 325mg Take 1 Uni vers sulfate 2-05 tablet by ity of (FEOSOL) 00:00: mouth in [place] 325 mg (65 00 the Medical mg iron) morning Branch tablet and 1 tablet in the evening. ascorbic 2021-07 Yes [id number] 500mg Take 1 Un christ acid, 2-05 tablet by ity of vitamin C, 00:00: mouth in [place] 500 mg 00 the Medical tablet morning Branch and 1 tablet in the evening. ferrous 2021-07 Yes [id number] 325mg Take 1 Uni vers sulfate 2-05 tablet by ity of (FEOSOL) 00:00: mouth in [place] 325 mg (65 00 the Medical mg iron) morning Branch tablet and 1 tablet in the evening. ascorbic 2021-07 Yes [id number] 500mg Take 1 Un christ acid, 2-05 tablet by ity of vitamin C, 00:00: mouth in [place] 500 mg 00 the Medical tablet morning Branch and 1 tablet in the evening. ferrous 2021-07 Yes [id number] 325mg Take 1 Uni vers sulfate 2-05 tablet by ity of (FEOSOL) 00:00: mouth in [place] 325 mg (65 00 the Medical mg iron) morning Branch tablet and 1 tablet in the evening. ascorbic 2021-07 Yes [id number] 500mg Take 1 Un christ acid, 2-05 tablet by ity of vitamin C, 00:00: mouth in [place] 500 mg 00 the Medical tablet morning Branch and 1 tablet in the evening. ferrous 2021-07 Yes [id number] 325mg Take 1 Uni vers sulfate 2-05 tablet by ity of (FEOSOL) 00:00: mouth in [place] 325 mg (65 00 the Medical mg iron) morning Branch tablet and 1 tablet in the evening. ascorbic 2021-07 Yes [id number] 500mg Take 1 Un christ acid, 2-05 tablet by ity of vitamin C, 00:00: mouth in [place] 500 mg 00 the Medical tablet morning Branch and 1 tablet in the evening. ferrous 2021-07 Yes [id number] 325mg Take 1 Uni vers sulfate 2-05 tablet by ity of (FEOSOL) 00:00: mouth in [place] 325 mg (65 00 the Medical mg iron) morning Branch tablet and 1 tablet in the evening. ascorbic 2021-07 Yes [id number] 500mg Take 1 Un christ acid, 2-05 tablet by ity of vitamin C, 00:00: mouth in [place] 500 mg 00 the Medical tablet morning Branch and 1 tablet in the evening. ferrous 2021-07 Yes [id number] 325mg Take 1 Uni vers sulfate 2-05 tablet by ity of (FEOSOL) 00:00: mouth in [place] 325 mg (65 00 the Medical mg iron) morning Branch tablet and 1 tablet in the evening. ascorbic 2021-07 Yes [id number] 500mg Take 1 Un christ acid, 2-05 tablet by ity of vitamin C, 00:00: mouth in [place] 500 mg 00 the Medical tablet morning Branch and 1 tablet in the evening. ferrous 2021-07- No [id number] 325mg Take 1 Un christ sulfate 2-05 -18 tablet by ity of (FEOSOL) 00:00: 00:[place] 325 mg (65 00 :00 the Medical mg iron) morning Branch tablet and 1 tablet in the evening. ascorbic 2021-07- No [id number] 500mg Take 1 U nivers acid, 2-05 -18 tablet by ity of vitamin C, 00:00: 00:00 [place] 500 mg 00 :00 the Medical tablet morning Branch and 1 tablet in the evening. ferrous 2021-07- No [id number] 325mg Take 1 Un christ sulfate 2-05 01-18 tablet by ity of (FEOSOL) 00:00: 00:[place] 325 mg (65 00 :00 the Medical mg iron) morning Branch tablet and 1 tablet in the evening. ascorbic 2021-07- No [id number] 500mg Take 1 U nivers acid, 2-05 -18 tablet by ity of vitamin C, 00:00: 00:00 [place] 500 mg 00 :00 the Medical tablet morning Branch and 1 tablet in the evening. ibuprofen 2021-07 Yes TAKE 1 Univer s 800 mg 2-04 TABLET BY ity of tablet 00:00: MOUTH [place] 00 EVERY 8 Medical HOURS Branch NEEDED PAIN TAKE WITH FOOD ibuprofen 2021-07 Yes TAKE 1 Univer s 800 mg 2-04 TABLET BY ity of tablet 00:00: MOUTH [place] 00 EVERY 8 Medical HOURS Branch NEEDED PAIN TAKE WITH FOOD ibuprofen 2021-07 Yes TAKE 1 Univer s 800 mg 2-04 TABLET BY ity of tablet 00:00: MOUTH [place] 00 EVERY 8 Medical HOURS Branch NEEDED PAIN TAKE WITH FOOD ibuprofen 2021-07 Yes TAKE 1 Univer s 800 mg 2-04 TABLET BY ity of tablet 00:00: MOUTH [place] 00 EVERY 8 Medical HOURS Branch NEEDED PAIN TAKE WITH FOOD ibuprofen 2021-07 Yes TAKE 1 Univer s 800 mg 2-04 TABLET BY ity of tablet 00:00: MOUTH [place] 00 EVERY 8 Medical HOURS Branch NEEDED PAIN TAKE WITH FOOD ibuprofen 2021-07 Yes TAKE 1 Univer s 800 mg 2-04 TABLET BY ity of tablet 00:00: MOUTH [place] 00 EVERY 8 Medical HOURS Branch NEEDED PAIN TAKE WITH FOOD ibuprofen 2021-07 Yes TAKE 1 Univer s 800 mg 2-04 TABLET BY ity of tablet 00:00: MOUTH [place] 00 EVERY 8 Medical HOURS Branch NEEDED PAIN TAKE WITH FOOD acetaminoph Yes 1{tbl} Take 1 Un christ en-codeine 9-17 tablet by ity of (TYLENOL-CO 00:00: mouth [place] DEINE #3) 00 every 6 Medical 300-30 mg (six) Branch tablet hours as needed for Pain (scale 7-10). acetaminoph Yes 1{tbl} Take 1 Un christ en-codeine 9-17 tablet by ity of (TYLENOL-CO 00:00: mouth [place] DEINE #3) 00 every 6 Medical 300-30 mg (six) Branch tablet hours as needed for Pain (scale 7-10). acetaminoph Yes 1{tbl} Take 1 Un christ en-codeine 9-17 tablet by ity of (TYLENOL-CO 00:00: mouth [place] DEINE #3) 00 every 6 Medical 300-30 mg (six) Branch tablet hours as needed for Pain (scale 7-10). acetaminoph Yes 1{tbl} Take 1 Un christ en-codeine 9-17 tablet by ity of (TYLENOL-CO 00:00: mouth [place] DEINE #3) 00 every 6 Medical 300-30 mg (six) Branch tablet hours as needed for Pain (scale 7-10). acetaminoph Yes 1{tbl} Take 1 Un christ en-codeine 9-17 tablet by ity of (TYLENOL-CO 00:00: mouth [place] DEINE #3) 00 every 6 Medical 300-30 mg (six) Branch tablet hours as needed for Pain (scale 7-10). acetaminoph Yes 1{tbl} Take 1 Un christ en-codeine 9-17 tablet by ity of (TYLENOL-CO 00:00: mouth [place] DEINE #3) 00 every 6 Medical 300-30 mg (six) Branch tablet hours as needed for Pain (scale 7-10). acetaminoph Yes 1{tbl} Take 1 Un christ en-codeine 9-17 tablet by ity of (TYLENOL-CO 00:00: mouth [place] DEINE #3) 00 every 6 Medical 300-30 mg (six) Branch tablet hours as needed for Pain (scale 7-10). acetaminoph Yes 1{tbl} Take 1 Un christ en-codeine 9-17 tablet by ity of (TYLENOL-CO 00:00: mouth [place] DEINE #3) 00 every 6 Medical 300-30 mg (six) Branch tablet hours as needed for Pain (scale 7-10). acetaminoph Yes 1{tbl} Take 1 Un christ en-codeine 9-17 tablet by ity of (TYLENOL-CO 00:00: mouth [place] DEINE #3) 00 every 6 Medical 300-30 mg (six) Branch tablet hours as needed for Pain (scale 7-10). acetaminoph Yes 1{tbl} Take 1 Un christ en-codeine 9-17 tablet by ity of (TYLENOL-CO 00:00: mouth [place] DEINE #3) 00 every 6 Medical 300-30 mg (six) Branch tablet hours as needed for Pain (scale 7-10). acetaminoph 2022- No 1{tbl} Take 1 U nivers en-codeine 9-17 01-18 tablet by ity of (TYLENOL-CO 00:00: 00:[place] DEINE #3) 00 :00 every 6 Medical 300-30 mg (six) Branch tablet hours as needed for Pain (scale 7-10). acetaminoph 2022- No 1{tbl} Take 1 U nivers en-codeine 9-17 01-18 tablet by ity of (TYLENOL-CO 00:00: 00:00 [place] DEINE #3) 00 :00 every 6 Medical 300-30 mg (six) Branch tablet hours as needed for Pain (scale 7-10). PNV without 2016-0 Yes [id number] 1{each} Take 1 Univers Ca-Iron 7-18 Each by ity of PsCmplx-FA 00:00: mouth [place] (SELECT-OB, 00 daily. Medica l FOLIC Branch ACID,) 29-1 mg Chew PNV without 2016-0 Yes [id number] 1{each} Take 1 Univers Ca-Iron 7-18 Each by ity of PsCmplx-FA 00:00: mouth [place] (SELECT-OB, 00 daily. Medica l FOLIC Branch ACID,) 29-1 mg Chew PNV without 2016-0 Yes [id number] 1{each} Take 1 Univers Ca-Iron 7-18 Each by ity of PsCmplx-FA 00:00: mouth [place] (SELECT-OB, 00 daily. Medica l FOLIC Branch ACID,) 29-1 mg Chew PNV without 2016-0 Yes [id number] 1{each} Take 1 Univers Ca-Iron 7-18 Each by ity of PsCmplx-FA 00:00: mouth [place] (SELECT-OB, 00 daily. Medica l FOLIC Branch ACID,) 29-1 mg Chew PNV without 2016-0 Yes [id number] 1{each} Take 1 Univers Ca-Iron 7-18 Each by ity of PsCmplx-FA 00:00: mouth [place] (SELECT-OB, 00 daily. Medica l FOLIC Branch ACID,) 29-1 mg Chew PNV without 2016-0 Yes [id number] 1{each} Take 1 Univers Ca-Iron 7-18 Each by ity of PsCmplx-FA 00:00: mouth [place] (SELECT-OB, 00 daily. Medica l FOLIC Branch ACID,) 29-1 mg Chew PNV without 2016-0 Yes [id number] 1{each} Take 1 Univers Ca-Iron 7-18 Each by ity of PsCmplx-FA 00:00: mouth [place] (SELECT-OB, 00 daily. Medica l FOLIC Branch ACID,) 29-1 mg Chew PNV without 2016-0 Yes [id number] 1{each} Take 1 Univers Ca-Iron 7-18 Each by ity of PsCmplx-FA 00:00: mouth [place] (SELECT-OB, 00 daily. Medica l FOLIC Branch ACID,) 29-1 mg Chew PNV without 2016- Yes [id number] 1{each} Take 1 Univers Ca-Iron 7-18 Each by ity of PsCmplx-FA 00:00: mouth [place] (SELECT-OB, 00 daily. Medica l FOLIC Branch ACID,) 29-1 mg Chew PNV without 2016- Yes [id number] 1{each} Take 1 Univers Ca-Iron 7-18 Each by ity of PsCmplx-FA 00:00: mouth [place] (SELECT-OB, 00 daily. Medica l FOLIC Branch ACID,) 29-1 mg Chew PNV without 2015- 2023- No [id number] 1{each} Take 1 Univers Ca-Iron 7-18 -18 Each by ity of PsCmplx-FA 00:00: 00:00 mouth [place] (SELECT-OB, 00 :00 daily. Medica l FOLIC Branch ACID,) 29-1 mg Chew PNV without 2015- 2023- No [id number] 1{each} Take 1 Univers Ca-Iron 7-18 -18 Each by ity of PsCmplx-FA 00:00: 00:00 mouth [place] (SELECT-OB, 00 :00 daily. Medica l FOLIC Branch ACID,) 29-1 mg Chew Immunizations Ordered Filled Immunization Date Status Comments [facility] Immunization Name Name Rubella 2010-08-01 Completed University of 00:00:00 [facility] Rubella 2010-08-01 Completed University of 00:00:00 [facility] Rubella 2010-08-01 Completed University of 00:00:00 [facility] Rubella 2010-08-01 Completed University of 00:00:00 [facility] Rubella 2010-08-01 Completed University of 00:00:00 [facility] Rubella 2010-08-01 Completed University of 00:00:00 [facility] Rubella 2010-08-01 Completed University of 00:00:00 [facility] Rubella 2010-08-01 Completed University of 00:00:00 [facility] Rubella 2010-08-01 Completed University of 00:00:00 [facility] Rubella 2010-08-01 Completed University of 00:00:00 [place] [facility] Rubella 2010-08-01 Completed University of 00:00:00 [place] [facility] Rubella 2010-08-01 Completed University of 00:00:00 [place] [facility] Rubella 2010-08-01 Completed University of 00:00:00 [place] [facility] Rubella 2010-08-01 Completed University of 00:00:00 [place] [facility] TDAP 2010-07-27 Completed University of 00:00:00 [place] [facility] TDAP 2010-07-27 Completed University of 00:00:00 [place] [facility] TDAP 2010-07-27 Completed University of 00:00:00 [place] [facility] TDAP 2010-07-27 Completed University of 00:00:00 [place] [facility] TDAP 2010-07-27 Completed University of 00:00:00 [place] [facility] TDAP 2010-07-27 Completed University of 00:00:00 [place] [facility] TDAP 2010-07-27 Completed University of 00:00:00 [place] [facility] TDAP 2010-07-27 Completed University of 00:00:00 [place] [facility] TDAP 2010-07-27 Completed University of 00:00:00 [place] [facility] TDAP 2010-07-27 Completed University of 00:00:00 [place] [facility] TDAP 2010-07-27 Completed University of 00:00:00 [place] [facility] TDAP 2010-07-27 Completed University of 00:00:00 [place] [facility] TDAP 2010-07-27 Completed University of 00:00:00 [facility] Branch TDAP 2010-07-27 Completed University of 00:00:00 [facility] Vital Signs Vital Name Observation Time Observation Value Comments Source Systolic blood 2022-08-13 20:13:00 120 mm[Hg] Univer sity of pressure [facility] Diastolic blood 2022-08-13 20:13:00 78 mm[Hg] Unive rsity of pressure [facility] Heart rate 2022-08-13 20:13:00 73 /min [facility] Body temperature 2022-08-13 20:13:00 36.5 Fransisca [facility] 2022-08-13 20:13:00 18 /min [facility] Body height 2022-08-13 20:13:00 157.5 cm [facility] Body weight 2022-08-13 20:13:00 86.093 kg Universi ty of [place] [facility] BMI 2022-08-13 20:13:00 34.71 kg/m2 Universi ty of [place] [facility] Oxygen saturation in 2022-08-13 20:13:00 99 /min University of Arterial blood by [facility] Pulse oximetry Branch Systolic blood 2022-08-06 20:10:00 110 mm[Hg] Univer sity of pressure [place] [facility] Diastolic blood 2022-08-06 20:10:00 72 mm[Hg] Unive rsity of pressure [place] [facility] Heart rate 2022-08-06 20:10:00 72 /min Universi ty of [place] [facility] Body temperature 2022-08-06 20:10:00 36.72 Fransisca Univ ersity of [place] [facility] Respiratory rate 2022-08-06 20:10:00 18 /min Univ ersity of [place] [facility] Body height 2022-08-06 20:10:00 157.5 cm Universi ty of [place] [facility] Body weight 2022-08-06 20:10:00 84.369 kg Universi ty of [place] [facility] BMI 2022-08-06 20:10:00 34.02 kg/m2 Universi ty of [place] [facility] Systolic blood 2022-06-30 20:24:00 102 mm[Hg] Univer sity of pressure [place] [facility] Diastolic blood 2022-06-30 20:24:00 56 mm[Hg] Unive rsity of pressure [place] [facility] Heart rate 2022-06-30 20:24:00 73 /min Universi ty of [place] [facility] Body temperature 2022-06-30 20:24:00 36.67 Fransisca Univ ersity of [place] [facility] Respiratory rate 2022-06-30 20:24:00 16 /min Univ ersity of [place] [facility] Body height 2022-06-30 20:24:00 157.5 cm Universi ty of [place] [facility] Body weight 2022-06-30 20:24:00 83.961 kg Universi ty of [place] [facility] BMI 2022-06-30 20:24:00 33.86 kg/m2 Universi ty of [place] [facility] Oxygen saturation in 2022-06-30 20:24:00 98 /min University of Arterial blood by [facility] Pulse oximetry Branch Procedures Procedure Date / Time Performing Clinician Source Performed EKG (SCANNED DOCUMENTS) 2022-08-13 06:01:00 Doctor Unassigned, N o [facility] Name Medical Branch EXTERNAL PROVIDER 2022-07-30 06:01:00 Doctor Unassigned, No [facility] RECORDS Name Medical Branch US PELVIS COMPLETE WITH 2022-07-29 15:25:54 Anna Souza [facility] TRANSVAGINAL [facility] CONSENT/REFUSAL FOR 2022-07-29 14:45:23 Doctor Unassigned, No [facility] DIAGNOSIS AND TREATMENT Name Medical [place] AUTHORIZATION TO RELEASE 2022-06-30 06:01:00 Doctor Unassigned, No [facility] PHI TO [facility] Name [facility] Encounters Start End Encounter Admission Attending Care Care Encounter Source Date/Time Date/Time Type Type Clinicians Facility Department ID 2023-02-10 2023-02-10 Outpatient R MARTHA PENG [facility] [id number] Univers 14:30:00 14:30:00 [facility] 2022-08-13 2022-08-13 [place] Supervisor 2, Adc Lab [facility] [id number] Univers 15:30:00 15:45:00 Visit Martha Peng PAREKH [id number] 0 ity [id number] [id number] [place] dical [facility] [address] [facility] 2022-08-13 2022-08-13 Outpatient R PENG THOMAS [facility] [id number] Univers 14:00:00 15:23:16 [facility] 2022-08-13 2022-08-13 Office Martha [facility] [id number] Univers 14:00:00 15:23:16 Visit Peng PAREKH [id number] [facility] [place] [id number] [facility] [address] [facility] 2022-08-13 2022-08-13 Orders Doctor [place] [id number] Univers 00:00:00 00:00:00 Only Unassigned, GEORGE [id number] ity of [place] [facility] 4.2.7.2.686 [place] [id number] [address] 2022-08-07 2022-08-07 [facility] [id number] Univers 00:00:00 00:00:00 Anna ALVAREZ [id number] it y of [place] [id number] [address] 2022-08-06 2022-08-06 Office [facility] [id number] [id number] Univers 14:30:00 14:30:00 Visit Anna ALVAREZ [id number] it y of [place] [id number] [address] 2022-08-06 2022-08-06 Outpatient R ANNA SOUZA [facility] B [id number] Univers 14:30:00 14:26:34 [facility] 2022-08-01 2022-08-01 Outpatient R ANNA SOUZA [facility] B [id number] Univers 11:30:00 11:30:00 [facility] 2022-07-30 2022-07-30 Orders Doctor [place] [id number] Univers 00:00:00 00:00:00 Only Unassigned, GEORGE [id number] ity of [place] [facility] 4.2.7.2.686 [place] [id number] [address] 2022-07-29 2022-07-29 Outpatient R ANNA SOUZA [facility] B [id number] Univers 08:47:11 23:59:00 [facility] 2022-07-29 2022-07-29 [facility] [id number] [id number] Univers 08:47:11 23:59:00 Encounter Anna ELIASSHANICE [id number] ity of [place] [id number] [facility] [id number] [facility] [address] 2022-07-29 2022-07-29 Orders Doctor ARRINGTON [id number] Univers 00:00:00 00:00:00 Only Unassigned, GEORGE [id number] ity of [facility] [id number] Lars [id number] [facility] [address] 2022-07-28 2022-07-28 Outpatient R ELIZABETHNATHAN ANNA [facility] B [id number] Univers 10:00:00 10:00:00 ANNA SOUZA [facility] 2022-07-16 2022-07-16 Outpatient R LIBBY ANNA [facility] B [id number] Univers 00:00:00 00:00:00 ANNA SOUZA [facility] 2022-07-01 2022-07-01 [facility] [id number] Univers 00:00:00 00:00:00 Anna ALVAREZ [id number] it y of [facility] [id number] [facility] [id number] [address] 2022-06-30 2022-06-30 Office [facility] [id number] Univers 14:30:00 14:51:49 Visit Anna ANTONIO [id number] it y of [facility] [id number] [facility] [id number] [address] 2022-06-30 2022-06-30 Outpatient R LIBBYJARREDLUIS [facility] B [id number] Univers 14:30:00 14:51:49 ANNA SOUZA [facility] 2022-06-30 2022-06-30 Orders Doctor ARRINGTON [id number] Univers 00:00:00 00:00:00 Only Unassigned, GEORGE [id number] ity of [facility] [id number] Lars as [phone] [facility] [address] Results This patient has no known results.
[2022-08-26 14:00] LABS: Urine Blood Negative (Negative); Urine Glucose Negative (Negative); Urine Protein Negative (Negative)
--- NOTE | 2022-08-26 14:37 | RAD REPORT ---
EXAM DESCRIPTION: CT - Head Brain Wo Cont - 08/26/2022 2:31 pm CLINICAL HISTORY: headache, new onset COMPARISON: No comparisons TECHNIQUE: All CT scans are performed using dose optimization technique as appropriate and may inclu de automated exposure control or mA/KV adjustment according to patient size. FINDINGS: No intracranial hemorrhage, hydrocephalus or extra-axial fluid collection.No areas of brai n edema or evidence of midline shift. Mild polypoid mucosal thickening right maxillary antrum. The paranasal sinuses and mastoids are other phillips clear. The calvarium is intact. IMPRESSION: No acute intracranial abnormality.
[2022-08-26] MEDS ORDERED: METOCLOPRAMIDE 10 MG/2mL INJ ONE (15:07)
[2022-08-26] MEDS ORDERED: DIPHENHYDRAMINE 50 MG/ML VIAL ONE (15:07)
[2022-08-26] MEDS ORDERED: NA CHLORIDE 0.9% 500 ML ONE (15:07)
--- NOTE | 2022-08-26 16:02 | RAD REPORT ---
EXAM DESCRIPTION: CT - Head angio - 08/26/2022 3:57 pm CLINICAL HISTORY: headache Headache, drowsiness COMPARISON: Head Brain Wo Cont dated 08/26/2022 TECHNIQUE: CT angiography of the head was performed with MIPs. All CT scans are performed using dose optimization technique as appropriate and may include automated exposure control or mA/KV adjustment according to patient size. FINDINGS: No evidence of aneurysm is detected. No flow-limiting stenosis or vascular malformation id entified. Antegrade flow is seen in the vertebral arteries. The vertebral arteries are codominant. The visualized dural venous sinuses are patent. IMPRESSION: No significant flow abnormality is detected.
--- NOTE | 2022-08-26 16:04 | RAD REPORT ---
EXAM DESCRIPTION: CT - Neck Angio - 08/26/2022 3:57 pm CLINICAL HISTORY: right sided headache Headache, drowsiness COMPARISON: No comparisons TECHNIQUE: CT angiography of the neck vessels was performed with MIPs. All CT scans are performed using dose optimization technique as appropriate and may include automated exposure control or mA/KV adjustment according to patient size. FINDINGS: A left aortic arch is identified with normal three vessel configuration of the great vesse ls. No significant flow abnormality is seen of the common carotid bilaterally. No significant stenosis is identified involving the cervical segments of both internal carotid arteri es. Normal flow is seen within both vertebral arteries. IMPRESSION: No significant flow abnormality of the neck vessels is identified.
--- NOTE | 2022-08-26 16:51 | EDPHYS ---
Physician Documentation [facility] Name: Kristy Kline Age: 26 yrs Sex: Female : 1995 Arrival Date: 08/26/2022 Time: 12:23 Bed 20 Private MD: ED Physician Roger Alegre HPI: 08/26 13:04 This 26 yrs old Female presents to ER via Ambulatory with complaints of Headache. jmm 13:04 The patient complains of pain to the right temporal area. Onset: The symptoms/episode jmm began/occurred gradually, 3 day(s) ago. Associated signs and symptoms: Pertinent negatives: fever. Is a 26-year-old female with history of anemia the presents emerged part with complaints of right-sided headache beginning approximate 3 days ago. Headache was gradual onset. Denies fever or neck stiffness. Denies vomiting. Denies photosensitivity.. 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 - Social history:: Smoking status: Patient denies any tobacco usage or history of. ROS: 13:04 Constitutional: Negative for fever, chills, and weight loss, Cardiovascular: Negative jmm for chest pain, palpitations, and edema, Respiratory: Negative for shortness of breath, cough, wheezing, and pleuritic chest pain. 13:04 Neuro: Positive for headache. 13:04 All other systems are negative. Exam: 13:04 Constitutional: This is a well developed, well nourished patient who is awake, alert, jmm and in no acute distress. Head/Face: atraumatic. Eyes: EOMI, no conjunctival erythema appreciated ENT: Moist Mucus Membranes Neck: Trachea midline, Supple Chest/axilla: Normal chest wall appearance and motion. Cardiovascular: Regular rate and rhythm. No edema appreciated Respiratory: Normal respirations, no respiratory distress appreciated Abdomen/GI: Non distended Back: Normal ROM Skin: General appearance color normal 13:04 Musculoskeletal/extremity: ROM: intact in all extremities. 13:04 Skin: Appearance: Color: normal in color. 13:04 Neuro: Motor: is normal. 13:04 Psych: Behavior/mood is pleasant, cooperative. Vital Signs: 13:12 Resp 16; Temp 98.9(TE); Weight 81.65 kg (R); Height 5 ft. 2 in. (157.48 cm); Pain 7/10; vg1 13:16 BP 121 / 74; Pulse 83; vg1 13:12 Body Mass Index 32.92 (81.65 kg, 157.48 cm) vg1 MDM: 13:04 Patient medically screened. [facility] 16:49 Data reviewed: vital signs, nurses notes. [facility] 19:53 Data reviewed: radiologic studies. I considered the following discharge prescriptions [facility] or medication management in the emergency department Medications were administered in the Emergency Department. See MAR. Counseling: I had a detailed discussion with the patient and/or guardian regarding: the historical points, exam findings, and any diagnostic results supporting the discharge/admit diagnosis, radiology results, the need for outpatient follow up, to return to the emergency department if symptoms worsen or persist or if there are any questions or concerns that arise at home. ED course: Headache was alleviated in the ED. Eyes CT ridging is negative. Patient vies follow-up neurology for further evaluation otherwise given strict return precautions. Patient distributors. 08/26 14:00 Order name: Urine --Ancillary (enter results); Complete Time: 14:20 08/26 14:00 Order name: Urine Dipstick-Ancillary; Complete Time: 14:01 [facility] 08/26 14:21 Order name: CT Head Brain wo Cont; Complete Time: 14:44 [facility] 08/26 15:32 Order name: CT Head Angio; Complete Time: 16:14 [facility] 08/26 15:32 Order name: CT Neck Angio; Complete Time: 16:14 [facility] 08/26 13:05 Order name: Saline Lock; Complete Time: 14:58 [facility] 08/26 13:05 Order name: Urine Dipstick-Ancillary (obtain specimen); Complete Time: 14:58 [facility] 08/26 13:05 Order name: Urine Test (obtain specimen); Complete Time: 14:58 [facility] Administered Medications: 15:08 Drug: Reglan (metoCLOPramide) 20 mg Route: IVP; Site: left antecubital; ap3 15:08 Drug: diphenhydrAMINE 12.5 mg Route: IVP; Site: left antecubital; ap3 Disposition: 18:13 Co-signature as Attending Physician, Roger Alegre MD. rn Disposition Summary: 08/26/22 16:50 Discharge Ordered Location: Home [facility] Condition: Stable jmm Diagnosis - Headache jmm - UTI/ Urinary tract infection, site not specified [facility] Followup: [facility] - With: Sal Davis MD - When: 2 - 3 days - Reason: Recheck today's complaints, Continuance of care, Re-evaluation by your physician Followup: [facility] - With: Ho Perez MD - When: 2 - 3 days - Reason: Recheck today's complaints, Continuance of care, Re-evaluation by your physician Followup: [facility] - With: Haseeb Santos MD - When: 2 - 3 days - Reason: Recheck today's complaints, Continuance of care, Re-evaluation by your physician Discharge Instructions: - Discharge Summary Sheet [facility] - General Headache Without Cause jmm - Urinary Tract Infection, Adult [facility] Forms: - Medication Reconciliation Form [facility] - Thank You Letter [facility] - Antibiotic Education [facility] - Prescription Opioid Use [facility] Prescriptions: - Cephalexin 500 mg Oral Capsule - take 1 capsule by ORAL route every 8 hours for 10 days; 30 capsule; Refills: 0, [facility] Product Selection Permitted Signatures: Dispatcher [employer] Edin Gifford PA PA Roger Ocampo MD MD rn Prokisch, Amanda, RN RN ap3 Analy Morales RN RN vg1
--- NOTE | 2022-08-26 16:51 | ER ---
Nurse's Notes [facility] Name: Kristy Kline Age: 26 yrs Sex: Female : 1995 Arrival Date: 08/26/2022 Time: 12:23 Bed 20 Private MD: Diagnosis: Headache;UTI/ Urinary tract infection, site not specified Presentation: 08/26 13:12 Chief complaint: Patient states: headache x 4 days, denies NVD; stated on Thursday felt vg1 dizzy with nausea but s/s have subsided; stated 'pressure' to right side of head. Coronavirus screen: Vaccine status: Patient reports being unvaccinated. Client denies travel out of the [place] in the last 14 days. Ebola Screen: Patient negative for fever greater than or equal to 101.5 degrees Fahrenheit, and additional compatible Ebola Virus Disease symptoms Patient denies exposure to infectious person. Initial Sepsis Screen: Does the patient meet any 2 criteria? Does the patient have a suspected source of infection?. Risk Assessment: Do you want to hurt yourself or someone else? Patient reports no desire to harm self or others. Onset of symptoms was August 22, 2022. 13:12 Method Of Arrival: Ambulatory 1 13:12 Acuity: TABATHA 3 vg1 Triage Assessment: 13:14 Headache History: The patient has had previous headaches and this one is different than vg1 previous episodes. General: Appears in no apparent distress. uncomfortable, Behavior is calm, cooperative. Pain: Complains of pain in head Pain currently is 7 out of 10 on a pain scale. Pain began 08/22/22 Also complains of nausea. Neuro: Level of Consciousness is awake, alert, obeys commands, Oriented to person, place, time, situation, Reports headache in right Denies blurred vision dizziness, photophobia. COP: 13:14 LMP 08/08/2022 vg1 Historical: - Allergies: 13:14 No Known Allergies; vg1 - Home Meds: 13:14 None [Active]; vg1 - PMHx: 13:14 Anemia; vg1 - PSHx: 13:14 section; vg1 - Immunization history:: Client reports having NOT received the Covid vaccine. - Social history:: Smoking status: Patient denies any tobacco usage or history of. Screenin:09 [facility] ED Fall Risk Assessment (Adult) History of falling in the last 3 months, ap3 including since admission No falls in past 3 months (0 pts). Abuse screen: Denies threats or abuse. Nutritional screening: No deficits noted. Tuberculosis screening: No symptoms or risk factors identified. Assessment: 15:08 General: Appears in no apparent distress. Behavior is calm, cooperative. Pain: ap3 Complains of pain in right side of head. Neuro: Level of Consciousness is awake, alert, obeys commands, Oriented to person, place, time, situation. Neuro: Reports headache with pressure. Cardiovascular: Patient's skin is warm and dry. Respiratory: Airway is patent Respiratory effort is even, unlabored, Respiratory pattern is regular, symmetrical. Vital Signs: 13:12 Resp 16; Temp 98.9(TE); Weight 81.65 kg (R); Height 5 ft. 2 in. (157.48 cm); Pain 7/10; vg1 13:16 BP 121 / 74; Pulse 83; vg1 13:12 Body Mass Index 32.92 (81.65 kg, 157.48 cm) vg1 ED Course: 12:23 Patient arrived in ED. as 12:25 Edin Rdz PA is PHCP. jmm 12:25 Roger Alegre MD is Attending Physician. jm 13:14 Triage completed. vg1 13:14 Arm band placed on. vg1 14:00 Urine collected: clean catch specimen, clear. tm3 14:09 Brandee Quiroz, RN is Primary Nurse. ap3 14:32 CT Head Brain wo Cont In Process Unspecified. EDMS 15:09 Patient has correct armband on for positive identification. Bed in low position. Call ap3 light in reach. Side rails up X 1. Pulse ox on. NIBP on. Door closed. Noise minimized. 15:58 CT Head Angio In Process Unspecified. EDMS 15:58 CT Neck Angio In Process Unspecified. EDMS 16:50 Sal Davis MD is Referral Physician. jmm 16:50 Ho Perez MD is Referral Physician. jmm 16:50 Haseeb Santos MD is Referral Physician. jmm 17:14 No provider procedures requiring assistance completed. IV discontinued, intact, ap3 bleeding controlled, No redness/swelling at site. Pressure dressing applied. Administered Medications: 15:08 Drug: Reglan (metoCLOPramide) 20 mg Route: IVP; Site: left antecubital; ap3 15:08 Drug: diphenhydrAMINE 12.5 mg Route: IVP; Site: left antecubital; ap3 Medication: 15:09 VIS not applicable for this client. ap3 Outcome: 16:50 Discharge ordered by MD. valentin 17:14 Discharged to home ambulatory. ap3 17:14 Condition: good 17:14 Discharge instructions given to patient, Instructed on discharge instructions, follow up and referral plans. medication usage, Demonstrated understanding of instructions, follow-up care, medications, Prescriptions given X 1. 17:15 Patient left the ED. ap3 Signatures: Dispatcher [employer] EDMS Wagner Hlal Joel, PA PA jmm Martinez, Amelia as Prokisch, Amanda RN RN ap3 Analy Morales RN RN vg1
[2022-08-26 17:19] VITALS: TEMP 98.9
[2022-08-26 17:20] VITALS: BP 121/74
== END 2022-08-26 17:15 | disposition home or self-care (01) ==
LOC: ER 12:20
DX: N39.0 Urinary tract infection, site not specified (principal)
CPT/HCPCS: 81025; 81003; 70450; 70496; 70498; Q9967; J2765; J1200; J7040

== ENCOUNTER 2022-08-27 17:46 | Emergency (ER) | payer OTHER ==
--- OUTSIDE RECORDS SUMMARY | 2022-08-27 17:50 | XMS REPORT | Continuity of Care Document ---
:1995 Author Organization [facility] t Address [address] [place] [address] Care Team Providers Name Role Phone Peng Thomas NP Primary Care Physician PENG THOMAS Attending Clinician Unavailable PENG THOMAS Attending Clinician Unavailable 2, [facility] Attending Clinician Unavailable Doctor Unassigned, Unity Attending Clinician Unavailable Libby CORNEJO, Anna Attending Clinician ANNA SOUZA Attending Clinician Unavailable ANNA SOUZA Admitting Clinician Unavailable Payers Payer Name Policy Type Policy Number Effective Date Expiration Date [facility] [id number] 2022 [facility] [place] STAR 00:00:00 Problems Condition Condition Condition Status Onset Resolution Last Treating Co mments Source Name Details Category Date Date Treatment Clinician Date History of History of Disease Active U nivers anemia anemia 1-11 ity of 00:00: [place] [address] Medical Branch Left-sided Left-sided Disease Active U nivers chest wall chest wall 1-11 it y of pain pain 00:00: [place] [address] Medical Branch ASCUS of ASCUS of Disease Active Unive rs cervix cervix 1-11 ity of with with 00:00: [place] negative negative 00 Medica l high risk [...] Univers pelvic pelvic 2-05 ity of 00:00: [place] 00 Medical Branch Iron Iron Disease Active 2021-07 Univers deficiency deficiency 2-05 it y of anemia, anemia, 00:00: [place] unspecifie unspecifie 00 Me dical d iron d iron Branch deficiency deficiency anemia anemia type type BMI BMI Disease Active 2021-07 Univers 34.0-34.9, 34.0-34.9, 2-05 it y of adult adult 00:00: [address] Branch Screen for Screen for Disease Active 2021-07 U nivers STD STD 2-05 ity of (sexually ([place] transmit[place] transmitte 00 Me dical d disease) d disease) Br anch Multiparit Multiparit Disease Active U nivers y y 7-18 ity of 00:00: [address] Branch Supervisio Supervisio Disease Active U nivers n of high n of high 7-18 ity of risk risk 00:00: [place] , , 00 Me dical antepartum antepartum Br anch Obesity Obesity Disease Active Univers affecting affecting 7-18 [place] Screening Screening Disease Active Overview: Univers breast breast 3-31 Formattin ity of examinatio examinatio 00:00: g of this [place] n n 00 note Medical might be Branch different from the original. 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 [place] Tobacco use and 2014-03-20 2014-03-20 Smokeless tobacco Un iversity of exposure 00:00:00 00:00:00 non-user [facility] Sex Assigned At [birth year] Universit y of 00:00:00 00:00:00 [facility] Smoking Status Start Date Stop Date Source Never smoked tobacco [facility] Medications Ordered Filled Start Stop Current Ordering Indication Dosage Frequency Signature Comments Components Source Medication Medication Date Date Medication? Clinician (SIG) Name Name busPIRone 2023-0 Yes [id number] 10mg Take 1 Un christ 10 mg 1-18 tablet by ity of tablet 00:00: mouth in [place] [address] the Medical morning [place] and 1 tablet in the evening. busPIRone 2023-0 Yes [id number] 10mg Take 1 Un christ 10 mg 1-18 tablet by ity of tablet 00:00: mouth in [place] [address] the Medical morning [place] and 1 tablet in the evening. busPIRone 2023-0 Yes [id number] 10mg Take 1 Un christ 10 mg 1-18 tablet by ity of tablet 00:00: mouth in [place] [address] the Medical morning [place] and 1 tablet in the evening. busPIRone 2023-0 Yes [id number] 10mg Take 1 Un christ 10 mg 1-18 tablet by ity of tablet 00:00: mouth in [place] [address] the Medical morning [place] and 1 tablet in the evening. triamcinolo 2023-0 Yes [id number] Apply to [facility] 1-11 area(s) 2 ity of acetonide 00:00: (two) [place] 0.1 % cream 00 times Medical daily. Branch triamcinolo 3-0 Yes [id number] Apply to [facility] ne 1-11 area(s) 2 ity of acetonide 00:00: (two) [place] 0.1 % cream 00 times Medical daily. Branch triamcinolo 2023-0 Yes [id number] Apply to [facility] ne 1-11 area(s) 2 ity of acetonide 00:00: (two) [place] 0.1 % cream 00 times Medical daily. Branch triamcinolo 2023-0 2023- No [id number] Apply to [facility] ne 1-11 08-13 area(s) 2 ity of acetonide 00:00: 00:00 (two) [place] 0.1 % cream 00 :00 times Medical daily. Branch stellaangela 2022- No [id number] Apply to [facility] 08-06 area(s) 2 ity of acetonide 00:00: 00:00 (two) [place] 0.1 % cream 00 :00 times Medical daily. Branch ferrous 2021-07 Yes [id number] 325mg Take 1 Uni vers sulfate 2-05 tablet by ity of (FEOSOL) 00:00: mouth in [place] 325 mg (65 00 the Medical mg iron) morning Branch tablet and 1 tablet in the evening. ascorbic 2021-07 Yes [id number] 500mg Take 1 Un christ acid, 2-05 tablet by ity of vitamin C, 00:00: mouth in [place] 500 mg 00 the Medical tablet morning Branch and 1 tablet in the evening. ferrous 2021-07 Yes [id number] 325mg Take 1 Uni vers sulfate 2-05 tablet by ity of (FEOSOL) 00:00: mouth in [place] 325 mg (65 00 the Medical mg iron) morning Branch tablet and 1 tablet in the evening. ascorbic 2021-07 Yes [id number] 500mg Take 1 Un christ acid, 2-05 tablet by ity of vitamin C, 00:00: mouth in [place] 500 mg 00 the Medical tablet morning Branch and 1 tablet in the evening. ferrous 2021-07 Yes [id number] 325mg Take 1 Uni vers sulfate 2-05 tablet by ity of (FEOSOL) 00:00: mouth in [place] 325 mg (65 00 the Medical mg iron) morning Branch tablet and 1 tablet in the evening. ascorbic 2021-07 Yes [id number] 500mg Take 1 Un christ acid, 2-05 tablet by ity of vitamin C, 00:00: mouth in [place] 500 mg 00 the Medical tablet morning Branch and 1 tablet in the evening. ferrous 2021-07 Yes [id number] 325mg Take 1 Uni vers sulfate 2-05 tablet by ity of (FEOSOL) 00:00: mouth in [place] 325 mg (65 00 the Medical mg iron) morning Branch tablet and 1 tablet in the evening. ascorbic 2021-07 Yes [id number] 500mg Take 1 Un christ acid, 2-05 tablet by ity of vitamin C, 00:00: mouth in [place] 500 mg 00 the Medical tablet morning Branch and 1 tablet in the evening. ferrous 2021-07 Yes [id number] 325mg Take 1 Uni vers sulfate 2-05 tablet by ity of (FEOSOL) 00:00: mouth in [place] 325 mg (65 00 the Medical mg iron) morning Branch tablet and 1 tablet in the evening. ascorbic 2021-07 Yes [id number] 500mg Take 1 Un christ acid, 2-05 tablet by ity of vitamin C, 00:00: mouth in [place] 500 mg 00 the Medical tablet morning Branch and 1 tablet in the evening. ferrous 2021-07 Yes [id number] 325mg Take 1 Uni vers sulfate 2-05 tablet by ity of (FEOSOL) 00:00: mouth in [place] 325 mg (65 00 the Medical mg iron) morning Branch tablet and 1 tablet in the evening. ascorbic 2021-07 Yes [id number] 500mg Take 1 Un christ acid, 2-05 tablet by ity of vitamin C, 00:00: mouth in [place] 500 mg 00 the Medical tablet morning Branch and 1 tablet in the evening. ferrous 2021-07 Yes [id number] 325mg Take 1 Uni vers sulfate 2-05 tablet by ity of (FEOSOL) 00:00: mouth in [place] 325 mg (65 00 the Medical mg iron) morning Branch tablet and 1 tablet in the evening. ascorbic 2021-07 Yes [id number] 500mg Take 1 Un christ acid, 2-05 tablet by ity of vitamin C, 00:00: mouth in [place] 500 mg 00 the Medical tablet morning Branch and 1 tablet in the evening. ferrous 2021-07 Yes [id number] 325mg Take 1 Uni vers sulfate 2-05 tablet by ity of (FEOSOL) 00:00: mouth in [place] 325 mg (65 00 the Medical mg iron) morning Branch tablet and 1 tablet in the evening. ascorbic 2021-07 Yes [id number] 500mg Take 1 Un christ acid, 2-05 tablet by ity of vitamin C, 00:00: mouth in [place] 500 mg 00 the Medical tablet morning Branch and 1 tablet in the evening. ferrous 2021-07 Yes [id number] 325mg Take 1 Uni vers sulfate 2-05 tablet by ity of (FEOSOL) 00:00: mouth in [place] 325 mg (65 00 the Medical mg iron) morning Branch tablet and 1 tablet in the evening. ascorbic 2021-07 Yes [id number] 500mg Take 1 Un christ acid, 2-05 tablet by ity of vitamin C, 00:00: mouth in [place] 500 mg 00 the Medical tablet morning Branch and 1 tablet in the evening. ferrous 2021-07 Yes [id number] 325mg Take 1 Uni vers sulfate 2-05 tablet by ity of (FEOSOL) 00:00: mouth in [place] 325 mg (65 00 the Medical mg iron) morning Branch tablet and 1 tablet in the evening. ascorbic 2021-07 Yes [id number] 500mg Take 1 Un christ acid, 2-05 tablet by ity of vitamin C, 00:00: mouth in [place] 500 mg 00 the Medical tablet morning Branch and 1 tablet in the evening. ferrous 2021-07- No [id number] 325mg Take 1 Un christ sulfate 2-05 -18 tablet by ity of (FEOSOL) 00:00: 00:00 [place] mg (65 00 :00 the Medical mg iron) morning Branch tablet and 1 tablet in the evening. ascorbic 2021-07- No [id number] 500mg Take 1 U nivers acid, 2-05 -18 tablet by ity of vitamin C, 00:00: 00:00 mouth in [place] 500 mg 00 :00 the Medical tablet morning Branch and 1 tablet in the evening. ferrous 2021-07- No [id number] 325mg Take 1 Un christ sulfate 2-05 -18 tablet by ity of (FEOSOL) 00:00: 00:00 [place] mg (65 00 :00 the Medical mg iron) morning Branch tablet and 1 tablet in the evening. ascorbic 2021-07- No [id number] 500mg Take 1 U nivers acid, 2-05 [...] 1{tbl} Take 1 U nivers en-codeine 9-17 -18 tablet by ity of (TYLENOL-CO 00:00: 00:00 [place] DEINE #3) 00 :00 every 6 Medical 300-30 mg (six) Branch tablet hours as needed for Pain (scale 7-10). acetaminoph 2015-3- No 1{tbl} Take 1 U nivers en-codeine 9-17 -18 tablet by ity of (TYLENOL-CO 00:00: 00:[place] DEINE #3) 00 :00 every 6 Medical 300-30 mg (six) Branch tablet hours as needed for Pain (scale 7-10). PNV without 2016-0 Yes [id number] 1{each} Take 1 Univers Ca-Iron 7-18 Each by ity of PsCmplx-FA 00:00: mouth [place] (SELECT-OB, 00 daily. Medica l FOLIC Branch ACID,) 29-1 mg Chew PNV without 2016-0 Yes [id number] 1{each} Take 1 Univers Ca-Iron 7-18 Each by ity of PsCmplx-FA 00:00: mouth [place] (SELECT-OB, 00 daily. Medica l FOLIC Branch ACID,) 29-1 mg Chew PNV without 2016-0 Yes [id number] 1{each} Take 1 Univers Ca-Iron 7-18 Each by ity of PsCmplx-FA 00:00: mouth [place] (SELECT-OB, 00 daily. Medica l FOLIC Branch ACID,) 29-1 mg Chew PNV without 2016-0 Yes [id number] 1{each} Take 1 Univers Ca-Iron 7-18 Each by ity of PsCmplx-FA 00:00: mouth [place] (SELECT-OB, 00 daily. Medica l FOLIC Branch ACID,) 29-1 mg Chew PNV without 2016-0 Yes [id number] 1{each} Take 1 Univers Ca-Iron 7-18 Each by ity of PsCmplx-FA 00:00: mouth [place] (SELECT-OB, 00 daily. Medica l FOLIC Branch ACID,) 29-1 mg Chew PNV without 2016-0 Yes [id number] 1{each} Take 1 Univers Ca-Iron 7-18 Each by ity of PsCmplx-FA 00:00: mouth [place] (SELECT-OB, 00 daily. Medica l FOLIC Branch ACID,) 29-1 mg Chew PNV without 2016-0 Yes [id number] 1{each} Take 1 Univers Ca-Iron 7-18 Each by ity of PsCmplx-FA 00:00: mouth [place] (SELECT-OB, 00 daily. Medica l FOLIC Branch ACID,) 29-1 mg Chew PNV without 2016-0 Yes [id number] 1{each} Take 1 Univers Ca-Iron 7-18 Each by ity of PsCmplx-FA 00:00: mouth [place] (SELECT-OB, 00 daily. Medica l FOLIC Branch ACID,) 29-1 mg Chew PNV without 2016-0 Yes [id number] 1{each} Take 1 Univers Ca-Iron 7-18 Each by ity of PsCmplx-FA 00:00: mouth [place] (SELECT-OB, 00 daily. Medica l FOLIC Branch ACID,) 29-1 mg Chew PNV without 2016-0 Yes [id number] 1{each} Take 1 Univers Ca-Iron 7-18 Each by ity of PsCmplx-FA 00:00: mouth [place] (SELECT-OB, 00 daily. Medica l FOLIC Branch ACID,) 29-1 mg Chew PNV without 2016-0 2023- No [id number] 1{each} Take 1 Univers Ca-Iron 7-18 01-18 Each by ity of PsCmplx-FA 00:00: 00:00 mouth [place] (SELECT-OB, 00 :00 daily. Medica l FOLIC Branch ACID,) 29-1 mg Chew PNV without 2016-0 2023- No [id number] 1{each} Take 1 Univers Ca-Iron 7-18 01-18 Each by ity of PsCmplx-FA 00:00: 00:00 mouth [place] (SELECT-OB, 00 :00 daily. Medica l FOLIC Branch ACID,) 29-1 mg Chew Immunizations Ordered Filled Immunization Date Status Comments [facility] e Immunization Name Name Rubella 2010-08-01 Completed University of 00:00:00 [facility] Rubella 2010-08-01 Completed University of 00:00:00 [facility] Rubella 2010-08-01 Completed University of 00:00:00 [facility] Rubella 2010-08-01 Completed University of 00:00:00 [facility] Rubella 2010-08-01 Completed University of 00:00:00 [facility] Branch Rubella 2010-08-01 Completed University of 00:00:00 [facility] Rubella 2010-08-01 Completed University of 00:00:00 [place] [facility] Rubella 2010-08-01 Completed University of 00:00:00 [place] [facility] Rubella 2010-08-01 Completed University of 00:00:00 [facility] Rubella 2010-08-01 Completed University of 00:00:00 [facility] Rubella 2010-08-01 Completed University of 00:00:00 [facility] Rubella 2010-08-01 Completed University of 00:00:00 [facility] Rubella 2010-08-01 Completed University of 00:00:00 [facility] Rubella 2010-08-01 Completed University of 00:00:00 [facility] Rubella 2010-08-01 Completed University of 00:00:00 [facility] TDAP 2010-07-27 Completed University of 00:00:00 [facility] TDAP 2010-07-27 Completed University of 00:00:00 [facility] TDAP 2010-07-27 Completed University of 00:00:00 [facility] TDAP 2010-07-27 Completed University of 00:00:00 [facility] TDAP 2010-07-27 Completed University of 00:00:00 [facility] TDAP 2010-07-27 Completed University of 00:00:00 [facility] TDAP 2010-07-27 Completed University of 00:00:00 [facility] TDAP 2010-07-27 Completed University of 00:00:00 [facility] TDAP 2010-07-27 Completed University of 00:00:00 [place] [facility] TDAP 2010-07-27 Completed University of 00:00:00 [place] [facility] TDAP 2010-07-27 Completed University of 00:00:00 [facility] Branch TDAP 2010-07-27 Completed University of 00:00:00 [facility] TDAP 2010-07-27 Completed University of 00:00:00 [facility] TDAP 2010-07-27 Completed University of 00:00:00 [facility] TDAP 2010-07-27 Completed University of 00:00:00 [facility] Branch Vital Signs Vital Name Observation Time Observation Value Comments Source Systolic blood 2022-08-13 20:13:00 120 mm[Hg] Univer sity of pressure [facility] Diastolic blood 2022-08-13 20:13:00 78 mm[Hg] Unive rsity of pressure [place] [facility] Heart rate 2022-08-13 20:13:00 73 /min Universi ty of [place] [facility] Body temperature 2022-08-13 20:13:00 36.5 Fransisca Univ ersity of [place] [facility] Respiratory rate 2022-08-13 20:13:00 18 /min Univ ersity of [place] [facility] Body height 2022-08-13 20:13:00 157.5 cm Universi ty of [place] [facility] Body weight 2022-08-13 20:13:00 86.093 kg Universi ty of [place] [facility] BMI 2022-08-13 20:13:00 34.71 kg/m2 Universi ty of [place] [facility] [place] Oxygen saturation in 2022-08-13 20:13:00 99 /min University of Arterial blood by [facility] Pulse oximetry Branch Systolic blood 2022-08-06 20:10:00 110 mm[Hg] Univer sity of pressure [place] [facility] Diastolic blood 2022-08-06 20:10:00 72 mm[Hg] Unive rsity of pressure [place] [facility] Heart rate 2022-08-06 20:10:00 72 /min Universi ty of [place] [facility] Body temperature 2022-08-06 20:10:00 36.72 Fransisca Univ ersity of [place] [facility] Respiratory rate 2022-08-06 20:10:00 18 /min Univ ersity of [place] [facility] Body height 2022-08-06 20:10:00 157.5 cm Universi ty [facility] [place] [facility] Body weight 2022-08-06 20:10:00 84.369 kg Universi ty of [place] [facility] BMI 2022-08-06 20:10:00 34.02 kg/m2 Universi ty [facility] [place] [facility] Systolic blood 2022-06-30 20:24:00 102 mm[Hg] Univer sity of pressure [place] [facility] Diastolic blood 2022-06-30 20:24:00 56 mm[Hg] Unive rsity of pressure [place] [facility] Heart rate 2022-06-30 20:24:00 73 /min Universi ty [facility] [place] [facility] Body temperature 2022-06-30 20:24:00 36.67 Fransisca Univ ersity of [place] [facility] Respiratory rate 2022-06-30 20:24:00 16 /min [facility] Body height 2022-06-30 20:24:00 157.5 cm [facility] Body weight 2022-06-30 20:24:00 83.961 kg [facility] BMI 2022-06-30 20:24:00 33.86 kg/m2 [facility] Oxygen saturation in 2022-06-30 20:24:00 98 /min [facility] Arterial blood by [facility] Pulse oximetry Branch Procedures Procedure Date / Time Performing Clinician Source Performed EKG (SCANNED DOCUMENTS) 2022-08-13 06:01:00 Doctor Unassigned, N o [facility] Name [facility] EXTERNAL PROVIDER 2022-07-30 06:01:00 Doctor Unassigned, No [facility] RECORDS Name [facility] US PELVIS COMPLETE WITH 2022-07-29 15:25:54 Anna Souza [facility] TRANSVAGINAL [facility] CONSENT/REFUSAL FOR 2022-07-29 14:45:23 Doctor Unassigned, No [facility] DIAGNOSIS AND TREATMENT [facility] AUTHORIZATION TO RELEASE 2022-06-30 06:01:00 Doctor Unassigned, No [facility] PHI TO [facility] Encounters Start End Encounter Admission Attending Care Care Encounter Source Date/Time Date/Time Type Type Clinicians Facility Department ID 2023-02-10 2023-02-10 Outpatient R PENG THOMAS [facility] [id number] [facility] 14:30:00 14:30:00 PENG THOMAS ity [facility] 2022-08-26 2022-08-26 Telephone Patricia [facility] 1.2.840.114 [id number] [facility] 00:00:00 00:00:00 Peng [facility] 4.2.7.2.686 [place] [id number] [place] 2022-08-13 2022-08-13 [place] [employer] Operator 2, Adc Lab [facility] 1.2.840.114 [id number] [facility] 15:30:00 15:45:00 Visit Peng Thomas 350.1.13.1 0 ity [facility] [place].2.[place] [id number] [place] dical NAL 353 [facility] 2022-08-13 2022-08-13 Outpatient R PENG THOMAS [facility] [id number] Univers 14:00:00 15:23:16 PENG THOMAS ity of [facility] 2022-08-13 2022-08-13 Office Patricia [facility] 1.2.840.114 [id number] Univers 14:00:00 15:23:16 Visit Peng PAREKH 350.1.13.10 ity of [place].686 [place] [id number] Ok dical NAL 044 [facility] 2022-08-13 2022-08-13 Orders Doctor NURY 1.2.840.114 [id number] Univers 00:00:00 00:00:00 Only Unassigned, GEORGE 350.1.13.10 ity of [place] [facility] 4.2.7.2.686 [place] [id number] [address] 2022-08-07 2022-08-07 Refill [facility] 1.2.840.114 [id number] Univers 00:00:00 00:00:00 Anna ALVAREZ 350.1.13.10 it y of [place] 4[place]2.686 [place] [id number] [address] 2022-08-06 2022-08-06 Office [facility] 1.2.840.114 [id number] Univers 14:30:00 14:30:00 Visit Anna ALVAREZ 350.1.13.10 it y of [place] [id number] [address] 2022-08-06 2022-08-06 Outpatient R ANNA SOUZA [facility] B [id number] Univers 14:30:00 14:26:34 ANNA SOUZA ity [facility] 2022-08-01 2022-08-01 Outpatient R LORENZOANNA MONREAL [facility] B [id number] Univers 11:30:00 11:30:00 FELYANNA DUNCAN martha [facility] 2022-07-30 2022-07-30 Orders Doctor NURY 1.2.840.114 [id number] Univers 00:00:00 00:00:00 Only Unassigned, GEORGE 350.1.13.10 ity of [place] [facility] 4.2.7.2.686 [place] [id number] [address] 2022-07-29 2022-07-29 Outpatient R FELYANNA DUNCAN [facility] B [id number] Univers 08:47:11 23:59:00 ELIZABETHANNA EVANS martha [facility] 2022-07-29 2022-07-29 [facility] 1.2.840.114 [id number] Univers 08:47:11 23:59:00 Encounter Anna [place] 350.1.13.10 ity [facility] 4.2.7.2.686 [facility] [id number] [facility] [address] [place] 2022-07-29 2022-07-29 Orders Doctor NURY 1.2.840.114 [id number] Univers 00:00:00 00:00:00 Only Unassigned, GEORGE 350.1.13.10 ity of [place] [facility] 4.2.7.2.686 [place] [id number] [address] 2022-07-28 2022-07-28 Outpatient R ELIZABETHNATHAN ANNA [facility] B [id number] Univers 10:00:00 10:00:00 LIBBY ANNA thomas [facility] 2022-07-16 2022-07-16 Outpatient R LIBBY ANNA [facility] B [id number] Univers 00:00:00 00:00:00 LIBBY ANNA thomas [facility] 2022-07-01 2022-07-01 [place] [id number] Univers 00:00:00 00:00:00 Anna ALVAREZ 350.1.13.10 it y of WOMEN'[facility] 4.2.7.2.686 [facility] [id number] 2022-06-30 2022-06-30 Office Libby [facility] REYES 1.2.840.114 [id number] Univers 14:30:00 14:51:49 Visit Anna ALVAREZ 350.1.13.10 it y of WOMEN'S 4.2.7.2.686 [facility] [id number] [address] 2022-06-30 2022-06-30 Outpatient R ANNA SOUZA [facility] B [id number] Univers 14:30:00 14:51:49 ANNA SOUZA [facility] 2022-06-30 2022-06-30 Orders Doctor NURY 1.2.840.114 [id number] 00:00:00 00:00:00 Only Unassigned, GEORGE 350.1.13.10 ity of [place] [facility] 4.2.7.2.686 [place] [id number] [place] [address] Branch Results This patient has no known results.
--- NOTE | 2022-08-27 20:21 | RAD REPORT ---
EXAM DESCRIPTION: En Single View08/27/2022 8:00 pm CLINICAL HISTORY: Chest pain COMPARISON: 2021 FINDINGS: The lungs appear clear of acute infiltrate. The heart is normal size IMPRESSION: No acute abnormalities displayed
[2022-08-27 20:23] LABS: Hematocrit 28.1 % (36.0-45.0); MCV 61.8 fL (80-100); MPV 9.1 fL (7.6-11.3); RBC Red Blood Cell Count 4.55 M/uL (3.86-4.86)
[2022-08-27 20:36] LABS: SARS-COV-2 RT PCR NEGATIVE (NEGATIVE)
[2022-08-27 20:48] LABS: Potassium 3.5 mmol/L (3.5-5.1); Troponin High Sensitivity 3.8 pg/mL (<58.9)
[2022-08-27] MEDS ORDERED: ACETAMINOPHEN 500 MG TAB ONE (20:58)
--- NOTE | 2022-08-27 21:06 | EDPHYS ---
Physician Documentation [facility] Name: Kristy Kline Age: 26 yrs Sex: Female : 1995 Arrival Date: 08/27/2022 Time: 17:50 Bed 12 Private MD: ED Physician Marcello Ken HPI: 08/27 19:00 This 26 yrs old Female presents to ER via Ambulatory with complaints of Doesn't Feel jmm Right. 19:00 The patient or guardian reports chest pain that is located primarily in the substernal jmm area. The pain does not radiate. This is a 26-year-old female with history of anemia the presents emerged part with complaints of palpitations beginning suddenly while serving dinner this evening. Patient states that her legs felt weak, she felt numbness in her face. Patient did have a similar episode of chest pain in May 2022 and has had some episodes where she has discussed with her primary care provider. Patient was recently evaluated in the ED for headache.. Historical: - Allergies: 18:10 No Known Allergies; ll1 - PMHx: 18:10 Anemia; ll1 - PSHx: 18:10 section; ll1 - Immunization history:: Client reports having NOT received the Covid vaccine. - Social history:: Smoking status: Patient denies any tobacco usage or history of. ROS: 19:00 Constitutional: Negative for fever, chills, and weight loss. jmm 19:00 Cardiovascular: Positive for chest pain, palpitations. 19:00 Neuro: Positive for weakness. 19:00 All other systems are negative. Exam: 19:00 Constitutional: This is a well developed, well nourished patient who is awake, alert, jmm and in no acute distress. Head/Face: atraumatic. Eyes: EOMI, no conjunctival erythema appreciated ENT: Moist Mucus Membranes Neck: Trachea midline, Supple Chest/axilla: Normal chest wall appearance and motion. Cardiovascular: Regular rate and rhythm. No edema appreciated Respiratory: Normal respirations, no respiratory distress appreciated Abdomen/GI: Non distended Back: Normal ROM Skin: General appearance color normal MS/ Extremity: Moves all extremities, no obvious deformities appreciated, no edema noted to the lower extremities Neuro: Awake and alert Psych: Behavior is normal, Mood is normal, Patient is cooperative and pleasant Vital Signs: 18:11 BP 130 / 70; Pulse 94; Resp 17; Temp 97.7; Pulse Ox 100% ; Weight 81.65 kg; Height 5 ll1 ft. 2 in. (157.48 cm); Pain 0/10; 20:46 BP 116 / 61; Pulse 89; Resp 16; Pulse Ox 100% on R/A; Pain 6/10; ll3 18:11 Body Mass Index 32.92 (81.65 kg, 157.48 cm) ll1 MDM: 19:00 Patient medically screened. [facility] 21:03 Data reviewed: vital signs, nurses notes, radiologic studies. I considered the [facility] following discharge prescriptions or medication management in the emergency department Medications were administered in the Emergency Department. See MAR. Independent interpretation of the following test(s) in the Emergency Department X-Ray: My interpretation is No infiltrates appreciated. Test considered but Not performed: Other Details CT of chest, PERC score negative. Counseling: I had a detailed discussion with the patient and/or guardian regarding: the historical points, exam findings, and any diagnostic results supporting the discharge/admit diagnosis, lab results, radiology results, the need for outpatient follow up, to return to the emergency department if symptoms worsen or persist or if there are any questions or concerns that arise at home. ED course: Patient states having similar episodes over the past 3 months. Patient states that she will follow-up with her PCP tomorrow for reevaluation. Otherwise given strict return precautions. Patient understood and agrees to plan of care.. 08/27 19:11 Order name: Basic Metabolic Panel; Complete Time: 20:52 3 08/27 19:11 Order name: CBC with Diff [facility] 08/27 19:11 Order name: Troponin HS; Complete Time: 20:52 3 08/27 19:11 Order name: XRAY Chest (1 view); Complete Time: 20:22 3 08/27 19:11 Order name: COVID-19/FLU A+B; Complete Time: 20:52 3 08/27 20:26 Order name: CBC Smear Scan [facility] 08/27 19:11 Order name: EKG; Complete Time: 19:12 3 08/27 19:11 Order name: Cardiac monitoring; Complete Time: 20:29 3 08/27 19:11 Order name: EKG - Nurse/Tech; Complete Time: 20:29 ll3 08/27 19:11 Order name: IV Saline Lock; Complete Time: 19:50 3 08/27 19:11 Order name: Labs collected and sent; Complete Time: 19:50 3 08/27 19:11 Order name: O2 Per Protocol; Complete Time: 19:50 3 08/27 19:11 Order name: O2 Sat Monitoring; Complete Time: :50 ll3 EC:01 Rate is 69 beats/min. Rhythm is regular. QRS Elizabeth is Normal. [place] interval is normal. QRS jmm interval is normal. QT interval is normal. No Q waves. T waves are Normal. No ST changes noted. Reviewed by me. Administered Medications: 20:58 Drug: Tylenol 1000 mg Route: PO; 3 21:30 Follow up: Response: No adverse reaction; No change in condition 3 21:30 Drug: GI Cocktail without - (Maalox Suspension 30 ml, Lidocaine Liquid 2 % 15 ll3 ml) Route: PO; 21:31 Follow up: Response: Medication administered at discharge. 3 Disposition Summary: 08/27/22 21:05 Discharge Ordered Location: Home [facility] Condition: Stable jmm Diagnosis - Chest pain, unspecified jmm - Palpitations [facility] Followup: [facility] - With: Eladio Zurita MD - When: 2 - 3 days - Reason: Recheck today's complaints, Continuance of care, Re-evaluation by your physician Discharge Instructions: - Discharge Summary Sheet jmm - Nonspecific Chest Pain, Adult jmm - Palpitations [facility] Forms: - Medication Reconciliation Form [facility] - Thank You Letter [facility] - Antibiotic Education [facility] - Prescription Opioid Use [facility] Prescriptions: - Hydroxyzine HCl 25 mg Oral Tablet - take 1 tablet by ORAL route every 6 hours As needed; 30 tablet; Refills: 0, [facility] Product Selection Permitted - Pepcid 20 mg Oral Tablet - take 1 tablet by ORAL route every 12 hours for 10 days; 20 tablet; Refills: 0, [facility] Product Selection Permitted Signatures: Dispatcher [employer] Edin Gifford PA PA jmm Lewis, Lynsay RN RN ll1 Tomy Hernadez RN RN ll3
--- NOTE | 2022-08-27 21:06 | ER ---
Nurse's Notes [facility] Name: Kristy Kline Age: 26 yrs Sex: Female : 1995 Arrival Date: 08/27/2022 Time: 17:50 Bed 12 Private MD: Diagnosis: Chest pain, unspecified;Palpitations Presentation: 08/27 18:11 Chief complaint: Patient states: Came here yesterday for bad NASH. Today she feels weak, ll1 achy all over, palpitations, chest pain, slight cough. No known fever. Coronavirus screen: Vaccine status: Patient reports receiving the 2nd dose of the covid vaccine. Client denies travel out of the [place] in the last 14 days. cough unrelated to allergies, fatigue, headache, nausea, Client presents with at least one sign or symptom that may indicate coronavirus-19. Standard/surgical mask placed on the client. Ebola Screen: Patient denies travel to an Ebola-affected area in the 21 days before illness onset. Initial Sepsis Screen: Does the patient meet any 2 criteria? HR > 90 bpm. No. Patient's initial sepsis screen is negative. Does the patient have a suspected source of infection? No. Patient's initial sepsis screen is negative. Risk Assessment: Do you want to hurt yourself or someone else? Patient reports no desire to harm self or others. Onset of symptoms was August 26, 2022. 18:11 Method Of Arrival: Ambulatory ll1 18:11 Acuity: TABATHA 3 ll1 Triage Assessment: 18:12 General: Appears uncomfortable, Behavior is calm, cooperative, appropriate for age. ll1 Pain: Complains of pain in chest Quality of pain is described as aching. Neuro: Reports headache a syncopal episode weakness. Cardiovascular: Reports chest pain, fatigue, palpitations. Respiratory: Reports cough that is. GI: Reports nausea. Musculoskeletal: Reports pain in body aches. Historical: - Allergies: 18:10 No Known Allergies; ll1 - PMHx: 18:10 Anemia; ll1 - PSHx: 18:10 section; ll1 - Immunization history:: Client reports having NOT received the Covid vaccine. - Social history:: Smoking status: Patient denies any tobacco usage or history of. Screenin:30 [facility] ED Fall Risk Assessment (Adult) History of falling in the last 3 months, ll3 including since admission No falls in past 3 months (0 pts) Confusion or Disorientation No (0 pts) Intoxicated or Sedated No (0 pts) Impaired Gait No (0 pts) Mobility Assist Device Used No (0 pt) Altered Elimination No (0 pt) Score/Fall Risk Level 0 - 2 = Low Risk Oriented to surroundings, Maintained a safe environment, Educated pt \T\ family on fall prevention, incl call for assistance when getting out of bed. Abuse screen: Denies threats or abuse. Denies injuries from another. Nutritional screening: No deficits noted. Tuberculosis screening: No symptoms or risk factors identified. Assessment: 20:46 General: Appears uncomfortable, Behavior is calm, cooperative. Pain: Complains of pain ll3 in chest Pain radiates to left axilla Pain currently is 6 out of 10 on a pain scale. Neuro: Level of Consciousness is awake, alert, obeys commands, Oriented to person, place, time, situation, Reports headache. Cardiovascular: Chest pain is described as mild, quality is sharp, is located in left anterior chest wall radiates to left arm(s) episodes are continuous. Derm: Skin is pink, warm \T\ dry. Vital Signs: 18:11 BP 130 / 70; Pulse 94; Resp 17; Temp 97.7; Pulse Ox 100% ; Weight 81.65 kg; Height 5 ll1 ft. 2 in. (157.48 cm); Pain 0/10; 20:46 BP 116 / 61; Pulse 89; Resp 16; Pulse Ox 100% on R/A; Pain 6/10; ll3 18:11 Body Mass Index 32.92 (81.65 kg, 157.48 cm) ll1 ED Course: 17:50 Patient arrived in ED. rg4 18:13 Triage completed. ll1 18:13 Arm band placed on. ll1 18:54 Edin Rdz PA is PHCP. [facility] 18:54 Marcello Ken MD is Attending Physician. [facility] 20:02 XRAY Chest (1 view) In Process Unspecified. EDMS 21:05 Eladio Zurita MD is Referral Physician. [facility] 21:30 Patient has correct armband on for positive identification. Placed in gown. Bed in low ll3 position. Side rails up X 1. Adult w/ patient. Client placed on continuous cardiac and pulse oximetry monitoring. NIBP monitoring applied. 21:30 No provider procedures requiring assistance completed. IV discontinued, intact, ll3 bleeding controlled, No redness/swelling at site. Pressure dressing applied. Administered Medications: 20:58 Drug: Tylenol 1000 mg Route: PO; ll3 21:30 Follow up: Response: No adverse reaction; No change in condition ll3 21:30 Drug: GI Cocktail without - (Maalox Suspension 30 ml, Lidocaine Liquid 2 % 15 ll3 ml) Route: PO; 21:31 Follow up: Response: Medication administered at discharge. ll3 Medication: 21:31 VIS not applicable for this client. ll3 Outcome: 21:05 Discharge ordered by . homero 21:31 Discharged to home ambulatory, with significant other. ll3 21:31 Condition: stable 21:31 Discharge instructions given to patient, significant other, Instructed on discharge instructions, follow up and referral plans. medication usage, Demonstrated understanding of instructions, follow-up care, medications, Prescriptions given X 2. 21:31 Patient left the ED. ll3 Signatures: Dispatcher [employer] EDMS Edin Rdz PA PA jmm Garcia, Rubi rg4 Shelia Juarez, RN RN ll1 Tomy Hernadez RN RN ll3
[2022-08-27 21:09] LABS: Blood Morphology Comment NOTED (NOT SEEN); Hypochromasia 2+; Platelet Estimate ADEQ; Target Cells 1+; White Blood Cell Scan OK (OK)
[2022-08-27] MEDS ORDERED: LIDOCAINE VISCOUS 2% SOLN 15 ML UDC ONE (21:26)
[2022-08-27] MEDS ORDERED: MAGNES/ALUMIN/SIMET 30ML UCUP ONE (21:26)
[2022-08-27 21:36] VITALS: TEMP 97.7; O2SAT 100
[2022-08-27 21:37] VITALS: BP 116/61
== END 2022-08-27 21:31 | disposition home or self-care (01) ==
LOC: ER 17:46
DX: R07.89 Other chest pain (principal); R00.2 Palpitations; R53.1 Weakness; Z20.822 Contact with and (suspected) exposure to COVID-19
CPT/HCPCS: 85025; 80048; 36415; 84484; 0240U; 71045; 93005

== ENCOUNTER 2024-01-30 20:11 | Emergency (ER) | payer SELFPAY ==
--- OUTSIDE RECORDS SUMMARY | 2024-01-30 20:15 | XMS REPORT | Continuity of Care Document ---
Author Name Unknown Address [address] [facility] [address] [place] [address] [facility] Address [address] [facility] [address] [place] [address] Care Team Providers Care Employment Programs Analyst Name Role Phone PENG THOMAS Primary Care Physician Debora leon OBI-FLAKITA, DEBBIE Attending Clinician Unavailab le OBI-FLAKITA, DEBBIE Attending Clinician Unavailab MARC Claudio Attending Clinician Unavailable ANNA SOUZA Attending Clinician Unavaila ANNA Pablo Attending Clinician Unavaila RACHELE Carey Attending Clinician Unavailable Doctor Unassigned, Gays Attending Clinician U navailable Lab, Ang - Db Attending Clinician Unavailable PENG THOMAS Attending Clinician Unavailab PENG Domínguez Attending Clinician Unavailab catherine Stafford, Adc Lab Attending Clinician Unavailable RACHELE SQUIRES Admitting Clinician Unavailable ANNA SOUZA Admitting Clinician Unavaila marielle Payers Payer Name Policy Type Policy Number Effective Date Expirati on Date Source [facility] [id number] 2022 00:00:00 Problems Condition Name Condition Details Condition Category Status Onset Date Resolution Date Last Treatment Date Treating Clinician Comments Source Vaginal irritation Vaginal irritation Disease Active 03-17 00:00: 00 [facility] acute hospital Encounter for initial prescripti on of injectable contracept ivan Encounter for initial prescripti on of injectable contracept ivan Disease Active 822 00:00: 00 [facility] acute hospital History of anemia History of anemia Disease Active 08-06 00:00: 00 [facility] acute hospital Left-sided chest wall pain Left-sided chest wall pain Disease Active 08-06 00:00: 00 General acute hospital ASCUS of cervix with negative high risk HPV ASCUS of cervix with negative high risk HPV Disease Active 08-06 00:00: 00 [facility] acute hospital Rash and other nonspecifi c skin eruption Rash and other nonspecifi c skin eruption Disease Active 08-06 00:00: 00 [facility] acute hospital Screening for malignant neoplasm of the cervix Screening for malignant neoplasm of the cervix Disease Active 2021-07 00:00: 00 [facility] acute hospital Pain pelvic Pain pelvic Disease Active 2021-07 00:00: 00 [facility] acute hospital Iron deficiency anemia, unspecifie d iron deficiency anemia type Iron deficiency anemia, unspecifie d iron deficiency anemia type Disease Active 2021-07 00:00: 00 [facility] acute hospital BMI 36.0-36.9, adult BMI 36.0-36.9, adult Disease Active 2021-07 00:00: 00 [facility] acute hospital Screen for STD (sexually transmitte d disease) Screen for STD (sexually transmitte d disease) Disease Active 2021-07 00:00: 00 General acute hospital Megaloblas tic anemia due to vitamin B12 deficiency Megaloblas tic anemia due to vitamin B12 deficiency Disease Active 2021-07 00:00: 00 [facility] acute hospital Multiparit y Multiparit y Disease Active 02-10 00:00: 00 General acute hospital Supervisio n of high risk , antepartum Supervisio n of high risk , antepartum Disease Active 02-10 00:00: 00 [facility] acute hospital Obesity affecting Obesity affecting Disease Active 02-10 00:00: 00 [facility] acute hospital Screening breast examinatio n Screening breast examinatio n Disease Active 10-24 00:00: 00 Overview: Formattin g of this note might be different from the original. ICD10 Diagnosis Term Life Assurance Representative Utility General acute hospital Allergies, Adverse Reactions, Alerts Allergy Name Allergy Type Status Severity Reaction(s) Onset Date Inactive Date Treating Clinician Comments Source NO KNOWN ALLERGIE S Drug Class Active General acute hospital Social History Social Habit Start Date Stop Date Quantity Comments Source Gender identity [facility] Sexual orientation U [facility] Alcohol intake 2023-04-13 00:00:00 2023-04-13 00:00:00 Lifetime non-drinker (finding) [facility] Exposure to SARS-CoV-2 (event) 2022-08-03 00:00:00 2022-08-13 13:28:[address] [facility] History of Social function 2022-08-13 00:00:00 2022-08-13 00:00:[address] [facility] Tobacco use and exposure 2014-03-20 00:00:00 2014-03-20 00:00:00 Smokeless tobacco non-user [facility] Sex Assigned At 1995 00:00:00 1995 00:00:[address] [facility] Smoking Status Start Date Stop Date Source Never smoked tobacco General acute hospital Medications Ordered Medication Name Filled Medication Name Start Date Stop Date Current Medication? Ordering Clinician Indication Dosage Frequency Signature (SIG) Comments Components Source carBAMazepi ne 100 mg 12 hr capsule 04-13 00:00: 00 Yes [id number] 100mg Take 1 capsule by mouth in the morning and 1 capsule in the evening. [facility] acute hospital medroxyPROG ESTERone (DEPO-PROVE RA) syringe 150 mg 03-17 20:00: 00 03-17 19:03 :00 No [id number] 150mg [facility] ibuprofen 600 mg tablet 02-21 00:00: 00 Yes TAKE 1 TABLET BY MOUTH EVERY 8 HOURS WITH FOOD AND PLENTY OF WATER NEEDED PAIN [facility] acute hospital amoxicillin 500 mg capsule 02-21 00:00: 00 03-16 00:00 :00 No TAKE 1 CAPSULE BY MOUTH THREE TIMES A DAY WITH FOOD AND PLENTY OF WATER [facility] acute hospital cyanocobala min (DODEX) injection 2,000 mcg 02-10 21:30: 00 12-16 21:29 :00 No [id number] 2000ug [facility] acute hospital sumatriptan 100 mg tablet 02-10 00:00: 00 Yes [id number] 100mg Take 1 tablet by mouth as needed for Migraine. [facility] acute hospital hydrOXYzine 50 mg tablet 02-10 00:00: 00 Yes [id number] 50mg Take 1 tablet by mouth 3 (three) times daily as needed for Anxiety. [facility] acute hospital ergocalcife rol, vitamin d2, 1,250 mcg (50,000 unit) capsule 02-04 00:00: 00 Yes [id number] 14997S Take 1 capsule by mouth weekly. [facility] acute hospital ferrous sulfate (IRON) 325 mg (65 mg iron) tablet 02-04 00:00: 00 03-16 00:00 :00 No [id number] 325mg Take 1 tablet by mouth in the morning. [facility] acute hospital cyanocobala min 1,000 mcg/mL injection 16 00:00: 00 Yes [id number] ONCE WEEKLY X4 WEEKS, THEN 1ML SUBCUTANEO USLY ONCE MONTHLY X6 MONTHS General acute hospital BUSPIRONE 10 mg tablet 2-10 00:00: 00 02-10 00:00 :00 No [id number] TAKE 1 TABLET BY MOUTH IN THE MORNING AND IN THE EVENING General acute hospital busPIRone 10 mg tablet -18 00:00: 00 09-05 00:00 :00 No [id number] 10mg Take 1 tablet by mouth in the morning and 1 tablet in the evening. [facility] acute hospital triamcinolo ne acetonide 0.1 % cream 1-11 00:00: 00 08-13 00:00 :00 No [id number] Apply to area(s) 2 (two) times daily. [facility] acute hospital ferrous sulfate (FEOSOL) 325 mg (65 mg iron) tablet 2021-07 2-05 00:00: 00 08-13 00:00 :00 No [id number] 325mg Take 1 tablet by mouth in the morning and 1 tablet in the evening. [facility] acute hospital ascorbic acid, vitamin C, 500 mg tablet 2021-07 2-05 00:00: 00 08-13 00:00 :00 No [id number] 500mg Take 1 tablet by mouth in the morning and 1 tablet in the evening. [facility] acute hospital ibuprofen 800 mg tablet 2021-07 2-04 00:00: 00 02-10 00:00 :00 No TAKE 1 TABLET BY MOUTH EVERY 8 HOURS NEEDED PAIN TAKE WITH FOOD General acute hospital acetaminoph en-codeine (TYLENOL-CO DEINE #3) 300-30 mg tablet 04-12 00:00: 00 08-13 00:00 :00 No 1{tbl} Take 1 tablet by mouth every 6 (six) hours as needed for Pain (scale 7-10). [facility] acute hospital PNV without Ca-Iron PsCmplx-FA (SELECT-OB, FOLIC ACID,) 29-1 mg Chew 02-10 00:00: 00 08-13 00:00 :00 No [id number] 1{each} Take 1 Each by mouth daily. [facility] acute hospital Immunizations Ordered Immunization Name Filled Immunization Name Date Status Comments Source Rubella 2010-08-01 00:00:[address] [facility] Rubella 2010-08-01 00:00:[address] [facility] Rubella 2010-08-01 00:00:[address] [facility] Rubella 2010-08-01 00:00:[address] [facility] Rubella 2010-08-01 00:00:[address] [facility] Rubella 2010-08-01 00:00:[address] [facility] Rubella 2010-08-01 00:00:[address] [facility] Rubella 2010-08-01 00:00:[address] [facility] Rubella 2010-08-01 00:00:[address] [facility] Rubella 2010-08-01 00:00:[address] [facility] Rubella 2010-08-01 00:00:[address] [facility] Rubella 2010-08-01 00:00:[address] [facility] Rubella 2010-08-01 00:00:[address] [facility] Rubella 2010-08-01 00:00:[address] [facility] Rubella 2010-08-01 00:00:[address] [facility] Rubella 2010-08-01 00:00:[address] [facility] Rubella 2010-08-01 00:00:[address] [facility] Rubella 2010-08-01 00:00:[address] [facility] Rubella 2010-08-01 00:00:[address] [facility] Rubella 2010-08-01 00:00:[address] [facility] Rubella 2010-08-01 00:00:[address] [facility] Rubella 2010-08-01 00:00:[address] [facility] Rubella 2010-08-01 00:00:[address] [facility] Rubella 2010-08-01 00:00:[address] [facility] Rubella 2010-08-01 00:00:[address] [facility] Rubella 2010-08-01 00:00:[address] [facility] Rubella 2010-08-01 00:00:[address] [facility] Rubella 2010-08-01 00:00:[address] [facility] Rubella 2010-08-01 00:00:[address] [facility] Rubella 2010-08-01 00:00:[address] [facility] Rubella 2010-08-01 00:00:[address] [facility] Rubella 2010-08-01 00:00:[address] [facility] Rubella 2010-08-01 00:00:[address] [facility] Rubella 2010-08-01 00:00:[address] [facility] Rubella 2010-08-01 00:00:[address] [facility] TDAP 2010-07-27 00:00:[address] [facility] TDAP 2010-07-27 00:00:[address] [facility] TDAP 2010-07-27 00:00:[address] [facility] TDAP 2010-07-27 00:00:[address] [facility] TDAP 2010-07-27 00:00:[address] [facility] TDAP 2010-07-27 00:00:[address] [facility] TDAP 2010-07-27 00:00:[address] [facility] TDAP 2010-07-27 00:00:[address] [facility] TDAP 2010-07-27 00:00:[address] [facility] TDAP 2010-07-27 00:00:[address] [facility] TDAP 2010-07-27 00:00:[address] [facility] TDAP 2010-07-27 00:00:[address] [facility] TDAP 2010-07-27 00:00:[address] [facility] TDAP 2010-07-27 00:00:[address] [facility] TDAP 2010-07-27 00:00:[address] [facility] TDAP 2010-07-27 00:00:[address] [facility] TDAP 2010-07-27 00:00:[address] [facility] TDAP 2010-07-27 00:00:[address] [facility] TDAP 2010-07-27 00:00:[address] [facility] TDAP 2010-07-27 00:00:[address] [facility] TDAP 2010-07-27 00:00:[address] [facility] TDAP 2010-07-27 00:00:[address] [facility] TDAP 2010-07-27 00:00:[address] [facility] TDAP 2010-07-27 00:00:[address] [facility] TDAP 2010-07-27 00:00:[address] [facility] TDAP 2010-07-27 00:00:[address] [facility] TDAP 2010-07-27 00:00:[address] [facility] TDAP 2010-07-27 00:00:[address] [facility] TDAP 2010-07-27 00:00:[address] [facility] TDAP 2010-07-27 00:00:[address] [facility] TDAP 2010-07-27 00:00:[address] [facility] TDAP 2010-07-27 00:00:[address] [facility] TDAP 2010-07-27 00:00:[address] [facility] TDAP 2010-07-27 00:00:[address] [facility] TDAP 2010-07-27 00:00:[address] [facility] TDAP Unknown Completed [facility] Rubella Unknown Completed [facility] TDAP Unknown Completed [facility] Rubella Unknown Completed [facility] TDAP Unknown Completed [facility] Rubella Unknown Completed [facility] TDAP Unknown Completed [facility] Rubella Unknown Completed [facility] Vital Signs Vital Name Observation Time Observation Value Comments S ource Systolic blood pressure 2023-04-13 15:48:00 107 mm[Hg] [facility] Diastolic blood pressure 2023-04-13 15:48:00 77 mm[Hg] [facility] Heart rate 2023-04-13 15:48:00 61 /min [facility] Body height 2023-04-13 15:48:00 157.5 cm [facility] Body weight 2023-04-13 15:48:00 89.858 kg [facility] BMI 2023-04-13 15:48:00 36.23 kg/m2 [facility] Oxygen saturation in Arterial blood by Pulse oximetry 2023-04-13 15:48:00 100 /min [facility] Systolic blood pressure 2023-03-17 18:38:00 117 mm[Hg] [facility] Diastolic blood pressure 2023-03-17 18:38:00 83 mm[Hg] [facility] Heart rate 2023-03-17 18:38:00 95 /min [facility] Body temperature 2023-03-17 18:38:[address] [facility] Respiratory rate 2023-03-17 18:38:00 17 /min [facility] Body height 2023-03-17 18:38:00 157.5 cm [facility] Body weight 2023-03-17 18:38:00 90.357 kg [facility] BMI 2023-03-17 18:38:00 36.43 kg/m2 [facility] Systolic blood pressure 2023-03-16 13:42:00 108 mm[Hg] [facility] Diastolic blood pressure 2023-03-16 13:42:00 67 mm[Hg] [facility] Heart rate 2023-03-16 13:42:00 73 /min [facility] Respiratory rate 2023-03-16 13:42:00 18 /min [facility] Body height 2023-03-16 13:42:00 [facility] 2023-03-16 13:42:00 89.948 kg [facility] BMI 2023-03-16 13:42:00 36.27 kg/m2 [facility] Oxygen saturation in Arterial blood by Pulse oximetry 2023-03-16 13:42:00 98 /min [facility] Systolic blood pressure 2023-03-02 13:05:00 109 mm[Hg] [facility] Diastolic blood pressure 2023-03-02 13:05:00 75 mm[Hg] [facility] Heart rate 2023-03-02 13:05:00 62 /min [facility] Respiratory rate 2023-03-02 13:05:00 16 /min [facility] Body height 2023-03-02 13:05:00 157.5 cm [facility] Body weight 2023-03-02 13:05:00 89.948 kg [facility] BMI 2023-03-02 13:05:00 36.27 kg/m2 [facility] Oxygen saturation in Arterial blood by Pulse oximetry 2023-03-02 13:05:00 98 /min [facility] Systolic blood pressure 2023-02-10 19:46:00 129 mm[Hg] [facility] Diastolic blood pressure 2023-02-10 19:46:00 77 mm[Hg] [facility] Heart rate 2023-02-10 19:46:00 66 /min [facility] Body temperature 2023-02-10 19:46:[address] [facility] Respiratory rate 2023-02-10 19:46:00 18 /min [facility] Body height 2023-02-10 19:46:00 157.5 cm [facility] Body weight 2023-02-10 19:46:00 87.408 kg [facility] BMI 2023-02-10 19:46:00 35.25 kg/m2 [facility] Oxygen saturation in Arterial blood by Pulse oximetry 2023-02-10 19:46:00 97 /min [facility] Systolic blood pressure 2022-08-13 20:13:00 120 mm[Hg] [facility] Diastolic blood pressure 2022-08-13 20:13:00 78 mm[Hg] [facility] Heart rate 2022-08-13 20:13:00 73 /min [facility] Body temperature 2022-08-13 20:13:[address] [facility] Respiratory rate 2022-08-13 20:13:00 18 /min [facility] Body height 2022-08-13 20:13:00 157.5 cm [facility] Body weight 2022-08-13 20:13:00 86.093 kg [facility] BMI 2022-08-13 20:13:00 34.71 kg/m2 [facility] Oxygen saturation in Arterial blood by Pulse oximetry 2022-08-13 20:13:00 99 /min [facility] Systolic blood pressure 2022-08-06 20:10:00 110 mm[Hg] [facility] Diastolic blood pressure 2022-08-06 20:10:00 72 mm[Hg] [facility] Heart rate 2022-08-06 20:10:00 72 /min [facility] Body temperature 2022-08-06 20:10:[address] [facility] Respiratory rate 2022-08-06 20:10:00 18 /min [facility] Body height 2022-08-06 20:10:00 157.5 cm [facility] Body weight 2022-08-06 20:10:00 84.369 kg [facility] BMI 2022-08-06 20:10:00 34.02 kg/m2 [facility] Systolic blood pressure 2022-06-30 20:24:00 102 mm[Hg] [facility] Diastolic blood pressure 2022-06-30 20:24:00 56 mm[Hg] [facility] Heart rate 2022-06-30 20:24:00 73 /min [facility] Body temperature 2022-06-30 20:24:[address] [facility] Respiratory rate 2022-06-30 20:24:00 16 /min [facility] Body height 2022-06-30 20:24:00 157.5 cm [facility] Body weight 2022-06-30 20:24:00 83.961 kg [facility] BMI 2022-06-30 20:24:00 33.86 kg/m2 [facility] Oxygen saturation in Arterial blood by Pulse oximetry 2022-06-30 20:24:00 98 /min [facility] Procedures Procedure Date / Time Performed Performing Clinician Source CONSENT FOR CONTRACEPTION 2023-03-17 05:01:00 Doctor Unassigned, Gays [facility] POCT TEST 2023-03-17 00:00:[address] [facility] POCT URINALYSIS W/O SPECIFIC GRAVITY 2023-03-17 00:00:[address] [facility] CT HEAD WO CONTRAST 2023-03-05 20:28:[address] [facility] ASSIGNMENT OF BENEFITS 2023-03-05 20:04:03 Docto r Unassigned, Gays [facility] EKG (SCANNED DOCUMENTS) 2022-08-13 06:01:00 Doct or Unassigned, Gays [facility] EXTERNAL PROVIDER RECORDS 2022-07-30 06:01:00 Doctor Unassigned, Gays [facility] US PELVIS COMPLETE WITH TRANSVAGINAL 2022-07-29 15:25:[address] [facility] CONSENT/REFUSAL FOR DIAGNOSIS AND TREATMENT 2022-07-29 14:45:23 Doctor Unassigned, Gays [facility] AUTHORIZATION TO RELEASE PHI TO [facility] 2022-06-30 06:01:00 Doctor Unassigned, Gays [facility] Encounters Start Date/Time End Date/Time Encounter Type Admission Type Attending [facility] Facility Care Department Encounter ID Source 2023-08-13 10:40:00 2023-08-13 10:40:00 Outpatient R OBI-FLAKITA DEBBIE OBI-FLAKITA DEBBIE [facility] [id number] General acute hospital 2023-07-31 08:30:00 2023-07-31 08:30:00 Outpatient R MARC BROWN [facility] [id number] General acute hospital 2023-07-01 09:30:00 2023-07-01 09:30:00 Outpatient R ANNA SOUZA CHERYAL [facility] [id number] General acute hospital 2023-06-09 09:30:00 2023-06-09 09:30:00 Outpatient R [facility] [id number] General acute hospital 2023-05-12 09:00:00 2023-05-12 09:00:00 Outpatient RACHELE CARDENAS [facility] [id number] General acute hospital 2023-05-11 09:30:00 2023-05-11 09:30:00 Outpatient RACHELE CARDENAS [facility] [id number] General acute hospital 2023-04-28 00:00:00 2023-04-28 00:00:00 [facility] [id number] [id number] [id number] [id number] General acute hospital 2023-04-13 11:00:00 2023-04-13 11:26:18 Outpatient R RACHELE SQUIRES [facility] [id number] General acute hospital 2023-04-13 11:00:00 2023-04-13 11:26:18 [facility] [id number] 350.1.13.10 4.2.7.2.686 [id number] General acute hospital 2023-04-06 08:30:00 2023-04-06 08:30:00 Outpatient R PROSPER [facility] [id number] General acute hospital 2023-03-24 00:00:00 2023-03-24 00:00:00 Telephone Pros[facility] 1..840.114 350.1.13.10 4.2.7.2.686 [id number] General acute hospital 2023-03-19 00:00:00 2023-03-19 00:00:00 Patient Secure Msg Anna Souza [facility] 1..840.114 350.1.13.10 4.2.7.2.686 [id number] General acute hospital 2023-03-17 13:30:00 2023-03-17 14:08:04 Outpatient R ANNA SOUZA CHERYAL [facility] [id number] General acute hospital 2023-03-17 13:30:00 2023-03-17 14:08:04 Office Visit Anna Souza [facility] 1..840.114 350.1.13.10 4.2.7.2.686 [id number] General acute hospital 2023-03-17 11:30:00 2023-03-17 11:30:00 Outpatient R ANNA SOUZA CHERYAL [facility] [id number] General acute hospital 2023-03-17 00:00:00 2023-03-17 00:00:00 Case Management Anna Souza [facility] 1..114 350.1.13.10 4.2.7.2.686 [id number] General acute hospital 2023-03-17 00:00:00 2023-03-17 00:00:00 Orders Only Doctor Unassigned, Gays [facility] 1..114 350.1.13.10 4.2.7.2.686 [id number] General acute hospital 2023-03-16 09:30:00 2023-03-16 09:45:00 Cable Operator Visit Lab, Jose M - Vineet Squires [facility] 1.840.114 350.1.13.10 4.2.7.2.686 [id number] General acute hospital 2023-03-16 09:00:00 2023-03-16 09:10:24 Outpatient R RACHELE SQUIRES [facility] [id number] General acute hospital 2023-03-16 09:00:00 2023-03-16 09:10:24 Office Visit [facility] MEDICAL OFFICE BUILDING 1.840.114 350.1.13.10 4.2.7.2.686 [id number] General acute hospital 2023-03-05 15:06:07 2023-03-05 23:59:00 Outpatient R RACHELE SQUIRES [facility] [id number] General acute hospital 2023-03-05 15:06:07 2023-03-05 23:59:00 Hospital Encounter Rachele Squires [facility] 1.84.114 350.1.13.10 4.2.7.2.686 [id number] General acute hospital 2023-03-05 00:00:00 2023-03-05 00:00:00 Orders Only Doctor Unassigned, Gays [facility] 1.2840.114 350.1.13.10 4.2.7.2.686 [id number] General acute hospital 2023-03-02 09:00:00 2023-03-02 09:15:00 Cable Operator [facility] Lab, [facility] 1..840.114 350.1.13.10 4.2.7.2.686 [id number] General acute hospital 2023-03-02 08:00:00 2023-03-02 08:46:54 Outpatient R PROSPER [facility] [id number] General acute hospital 2023-03-02 08:00:00 2023-03-02 08:46:54 Office Visit [facility] MEDICAL OFFICE BUILDING 1.840.114 350.1.13.10 4.2.7.2.686 [id number] General acute hospital 2023-02-21 00:00:00 2023-02-21 00:00:00 Patient Secure Msg Doctor Unassigned, Gays [facility] 1.2840.114 350.1.13.10 4.2.7.2.686 [id number] General acute hospital 2023-02-20 16:35:36 2023-02-20 16:35:36 Outpatient [facility] [id number] Ta Fernandez Navneet 2023-02-10 14:30:00 2023-02-10 15:31:26 Outpatient R PENG THOMAS OGECHUKWU [facility] [id number] General acute hospital 2023-02-10 14:30:00 2023-02-10 15:31:26 Office Visit Peng Thomas [facility] BUILDING 1.2.840.114 350.1.13.10 4.2.7.2.686 [id number] General acute hospital 2023-02-04 00:00:00 2023-02-04 00:00:00 Telephone Debbie Miner [facility] BUILDING 1.2.840.114 350.1.13.10 4.2.7.2.686 [id number] General acute hospital 2022-10-07 00:00:00 2022-10-07 00:00:00 Telephone Fermín Thomaskevin [facility] 1.2.840.114 350.1.13.10 4.2.7.2.686 [id number] General acute hospital 2022-09-30 00:00:00 2022-09-30 00:00:00 Patient Secure Msg Doctor Unassigned, Gays [facility] 1.2.840.114 350.1.13.10 4.2.7.2.686 [id number] General acute hospital 2022-09-05 00:00:00 2022-09-05 00:00:00 Refill Fermín Thomaskevin [facility] 1.2.840.114 350.1.13.10 4.2.7.2.686 [id number] General acute hospital 2022-09-01 17:22:28 2022-09-01 17:22:28 Outpatient [facility] [id number] Ta Fernandez Navneet 2022-08-26 00:00:00 2022-08-26 00:00:00 Telephone Patricia, Peng [facility] 1.2.840.114 350.1.13.10 4.2.7.2.686 [id number] General acute hospital 2022-08-13 15:30:00 2022-08-13 15:45:00 Cable Operator Visit 2, Adc Lab Peng Thomas [facility] BUILDING 1.2.840.114 350.1.13.10 4.2.7.2.686 [id number] General acute hospital 2022-08-13 14:00:00 2022-08-13 15:23:16 Outpatient R PENG [facility]AS [facility] [id number] General acute hospital 2022-08-13 14:00:00 2022-08-13 15:23:16 Office Visit Peng Thomas [facility] 1.2.840.114 350.1.13.10 4.2.7.2.686 [id number] General acute hospital 2022-08-13 00:00:00 2022-08-13 00:00:00 Orders Only Doctor Unassigned, Gays [facility] 1.2.840.114 350.1.13.10 4.2.7.2.686 [id number] General acute hospital 2022-08-07 00:00:00 2022-08-07 00:00:00 Refill [facility] 1.2.840.114 350.1.13.10 4.2.7.2.686 [id number] General acute hospital 2022-08-06 14:30:00 2022-08-06 14:30:00 Office Visit [facility] 1.2.840.114 350.1.13.10 4.2.7.2.686 [id number] General acute hospital 2022-08-06 14:30:00 2022-08-06 14:26:34 Outpatient R ANNA SOUZA ANNA [facility] [id number] General acute hospital 2022-08-01 11:30:00 2022-08-01 11:30:00 [facility] [id number] General acute hospital 2022-07-30 00:00:00 2022-07-30 00:00:00 Orders Only Doctor Unassigned, Gays [facility] 1.2.840.114 350.1.13.10 4.2.7.2.686 [id number] General acute hospital 2022-07-29 08:47:11 2022-07-29 23:59:00 Outpatient R LORENZOANNA MONREAL [facility] [id number] General acute hospital 2022-07-29 08:47:11 2022-07-29 23:59:00 Hospital Encounter TaylorAnna perez [facility] 1.2.840.114 350.1.13.10 4.2.7.2.686 [id number] General acute hospital 2022-07-29 00:00:00 2022-07-29 00:00:00 Orders Only Doctor Unassigned, Gays [facility] 1.2.840.114 350.1.13.10 4.2.7.2.686 [id number] General acute hospital 2022-07-28 10:00:00 2022-07-28 10:00:00 Outpatient R LORENZOANNA MONREAL ANNA [facility] [id number] General acute hospital 2022-07-16 00:00:00 2022-07-16 00:00:00 Outpatient R LIBBY [facility]NA [facility] [id number] General acute hospital 2022-07-01 00:00:00 2022-07-01 00:00:00 Telephone Anna Souza [facility] 1.2.840.114 350.1.13.10 4.2.7.2.686 [id number] General acute hospital 2022-06-30 14:30:00 2022-06-30 14:51:49 [facility] 1.2.840.114 350.1.13.10 4.2.7.2.686 [id number] General acute hospital 2022-06-30 14:30:00 2022-06-30 14:51:49 [facility] [id number] General acute hospital 2022-06-30 00:00:00 2022-06-30 00:00:00 Orders Only Doctor Unassigned, Gays [facility] 1.2.840.114 350.1.13.10 4.2.7.2.686 [id number] General acute hospital Results Test Description Test Time Test Comments Results Result Co mments Source [facility] [id number] 18:47:00* Test Item Value Reference Range Interpretation Comme nts POCT PREG (test code = 1605) Negative On board controls acceptable with C Line (test code = 3574) Yes POCT PREG LOT # (test code = 3575) POCT PREG TEST DATE ( test code = 3576) [facility] URINALYSIS W/O SPECIFIC [id number] 18:46:00* Test Item Value Reference Range Interpretation Comme nts POCT PH U (test code = 3254) 7 mg/dl 5-8 POCT U LEUK EST (test code = 3263) negative Negative - Negative POCT U NIT (test code = 3262) negative Negative - Negati ve POCT U PROT (test code = 3259) negative Negative - Negat ivan POCT U GLU (test code = 3256) negative Negative - Negati ve POCT U KETONE (test code = 3258) negative Negative - Neg ative POCT U BLD (test code = 3257) negative Negative - Negati ve [facility] W/O SPECIFIC [id number] 18:46:00* Test Item Value Reference Range Interpretation Comme nts POCT PH U (test code = 3254) 7 mg/dl 5-8 POCT U LEUK EST (test code = 3263) negative Negative - Negative POCT U NIT (test code = 3262) negative Negative - Negati ve POCT U PROT (test code = 3259) negative Negative - Negat ivan POCT U GLU (test code = 3256) negative Negative - Negati ve POCT U KETONE (test code = 3258) negative Negative - Neg ative POCT U BLD (test code = 3257) negative Negative - Negati ve [facility] Notes Date/Time Note Provider Source 2023-03-31 08:08:28 6065-82-62W37:08:28F ormatting of this note might be different from the original.Sent pt [employer] message relaying what ZION Alvarez stated. Let pt know she can call to schedule sooner f/u appt if she wanted and no medications were warranted at this time. 01805-5Fziuggciu encounter WwaaJN8333-92-88I07:09:36Tele phone encounter NoteTXT1.2.840.100634.1.13.10 4.2.7.2.160353|[id number] ailable for patient [id number] sophia Carmen [address] BtqdMxeyngwajYglyqzcbrIHRU526 [id number] 9826-30-63J42:09:361.2.840.11 4350.1.72.3.15|1.2.840.999604 .1.13.104.2.7.2.727879_189071 4137 Dipika Carmen LVN [facility] 2023-03-24 10:20:59 4990-49-89Y96:20:59F ormatting of this note might be different from the original.Sent pt [employer] message letting her know LAURETN AlvarezP is out of office this week but I would route the message to her to review once she is back. Also mentioned medication being prescribed was going to be dependent on labs being positive as mentioned in FAUZIA. 08915-5Apzyuvqpv encounter AilxNW0364-92-69C47:26:49Tele phone encounter NoteTXT1.2.840.145001.1.13.10 4.2.7.2.415268|[id number] ailable for patient fxga01752-6TsstFRDMYDKBHN[address] [id number] 7413-17-92V35:26:491.2.840.11 4350.1.72.3.15|1.2.840.293793 .1.13.104.2.7.2.727879_188595 7500 [facility] 2023-03-24 09:55:40 6291-91-11O94:55:40F ormatting of this note might be different from the original.Kristy L Tia is a 27 year old femalePatient is calling requesting for blood work results to be read. She also states she needs some medication to be prescribed as mentioned in office visit. Please advise thank you 67542-8Jpobyrrwj encounter UdqaWB2813-44-61J05:56:45Tele phone encounter NoteTXT1.2.840.673712.1.13.10 4.2.7.2.436943|[id number] ailable for patient [id number] napoleon Reynoso VU[address]TX[address] 7208518XJKZCSRNQRLVZYVNAYJWKP 6267-74-89O21:56:451.2.840.11 4350.1.72.3.15|1.2.840.417078 .1.13.104.2.7.2.727879_188590 6490 Mita Reynoso V [facility] 2023-03-16 09:30:00 9748-14-41K03:30:00F ormatting of this note is different from the original.Images from the original note were not included.Venipuncture collection performed by clean technique on the left anticubitus. Total of 1 attempts were made. Slight pressure and a bandage/dressing were applied to the site(s). The patient experienced no complications. The following specimens were processed according to instructions and sent to [facility] laboratories per lab order on 03/16/2023 : LT BLUE SST 1 RED LAV 1 PPT DK GREEN (LiHep) DK GREEN (SodH) CORDOVA DK BLUE (K2) DK BLUE (S) ACD Blood Culture NIPT/NTD [id number] ChtuYD8687-45-83O12:34:26Nurs e NoteTXT1.2.840.934077.1.13.10 4.2.7.2.311704|[id number] ailable for patient blnn42801-8Mdhkd NoteLNUT[address]TX[address] [id number] 5519-15-39K33:34:261.2.840.11 4350.1.72.3.15|1.2.840.171449 .1.13.104.2.7.2.727879_187901 0248 [facility] 2023-03-02 09:00:00 3518-65-33Z67:00:00F ormatting of this note is different from the original.Images from the original note were not included.Venipuncture collection performed by clean technique on the left anticubitus. Total of 1 attempts were made. Slight pressure and a bandage/dressing were applied to the site(s). The patient experienced no complications. The following specimens were processed according to instructions and sent to [facility] laboratories per lab order on 03/02/2023 : LT BLUE SST 2 RED LAV 2 PPT DK GREEN (LiHep) DK GREEN (SodH) CORDOVA DK BLUE (K2) DK BLUE (S) ACD Blood Culture NIPT/NTD 54748-6Vqhco TyjgRU1269-95-76D30:10:00Nurs e NoteTXT1.2.840.558726.1.13.10 4.2.7.2.022900|[id number] ailable for patient qqut38587-3Emxfz NoteLNUT[address] FlmdClmgjiqymThyuiqktgKFQY547 [id number] 1388-60-71R75:10:001.2.840.11 4350.1.72.3.15|1.2.840.485456 .1.13.104.2.7.2.727879_186790 7137 [facility]"
--- NOTE | 2024-01-30 21:31 | EDPHYS ---
Physician Documentation [facility] Name: Kristy Kline Age: 28 yrs Sex: Female : 1995 Arrival Date: 01/30/2024 Time: 20:11 Bed DX3 Private MD: ED Physician Jermaine Decker HPI: 01/29 21:23 This 28 yrs old Female presents to ER via Ambulatory with complaints of muriel Toothache. 21:23 The patient presents with broken tooth/teeth, pain, swelling. The problem is located in muriel the right jaw. Onset: The symptoms/episode began/occurred 3 day(s) ago. Duration: The symptoms are continuous, and are steadily getting worse. Modifying factors: The symptoms are alleviated by nothing, the symptoms are aggravated by air, chewing, food. Associated signs and symptoms: The patient has no apparent associated signs or symptoms. Severity of symptoms: At their worst the symptoms were moderate, in the emergency department the symptoms are unchanged. The patient has experienced similar episodes in the past, several times. Historical: - Allergies: 20:25 No Known Allergies; tl4 - Home Meds: 20:25 None [Active]; tl4 - PMHx: 20:25 Anemia; tl4 - PSHx: 20:25 section; tl4 - Immunization history:: Adult Immunizations unknown. - Infectious Disease History:: Denies. - Social history:: Smoking status: Patient denies any tobacco usage or history of. - Family history:: not pertinent. ROS: 21:23 Constitutional: Negative for fever, chills, and weight loss, Eyes: Negative for injury, muriel pain, redness, and discharge, Neck: Negative for injury, pain, and swelling, Cardiovascular: Negative for chest pain, palpitations, and edema, Respiratory: Negative for shortness of breath, cough, wheezing, and pleuritic chest pain, Abdomen/GI: Negative for abdominal pain, nausea, vomiting, diarrhea, and constipation, Back: Negative for injury and pain, : Negative for injury, bleeding, discharge, and swelling, MS/Extremity: Negative for injury and deformity, Skin: Negative for injury, rash, and discoloration, Neuro: Negative for headache, weakness, numbness, tingling, and seizure, Psych: Negative for depression, anxiety, suicide ideation, homicidal ideation, and hallucinations, Allergy/Immunology: Negative for hives, rash, and allergies, Endocrine: Negative for neck swelling, polydipsia, polyuria, polyphagia, and marked weight changes, Hematologic/Lymphatic: Negative for swollen nodes, abnormal bleeding, and unusual bruising, 21:23 ENT: Positive for dental pain, Gum pain Exam: 21:23 Constitutional: This is a well developed, well nourished patient who is awake, alert, muriel and in no acute distress. Head/Face: Normocephalic, atraumatic. Eyes: Pupils equal round and reactive to light, extra-ocular motions intact. Lids and lashes normal. Conjunctiva and sclera are non-icteric and not injected. Cornea within normal limits. Periorbital areas with no swelling, redness, or edema. Neck: Trachea midline, no thyromegaly or masses palpated, and no cervical lymphadenopathy. Supple, full range of motion without nuchal rigidity, or vertebral point tenderness. No Meningismus. Chest/axilla: Normal chest wall appearance and motion. Nontender with no deformity. No lesions are appreciated. Cardiovascular: Regular rate and rhythm with a normal S1 and S2. No gallops, murmurs, or rubs. Normal PMI, no JVD. No pulse deficits. Respiratory: Lungs have equal breath sounds bilaterally, clear to auscultation and percussion. No rales, rhonchi or wheezes noted. No increased work of breathing, no retractions or nasal flaring. Abdomen/GI: Soft, non-tender, with normal bowel sounds. No distension or tympany. No guarding or rebound. No evidence of tenderness throughout. Back: No spinal tenderness. No costovertebral tenderness. Full range of motion. Skin: Warm, dry with normal turgor. Normal color with no rashes, no lesions, and no evidence of cellulitis. MS/ Extremity: Pulses equal, no cyanosis. Neurovascular intact. Full, normal range of motion. Neuro: Awake and alert, GCS 15, oriented to person, place, time, and situation. Cranial nerves II-XII grossly intact. Motor strength 5/5 in all extremities. Sensory grossly intact. Cerebellar exam normal. Normal gait. Psych: Awake, alert, with orientation to person, place and time. Behavior, mood, and affect are within normal limits. 21:23 ENT: Mouth: Gums: noted to have cellulitis, reddened, swollen, on the lower right first molar, Vital Signs: 20:22 BP 144 / 79; Pulse 75; Resp 16; Temp 97.3(TE); Pulse Ox 99% on R/A; Weight 90.72 kg; tl4 Height 5 ft. 2 in. ; Pain 10/10; 21:40 BP 138 / 78; Pulse 74; Resp 16; Pulse Ox 100% ; vc1 20:22 Body Mass Index 36.58 (90.72 kg, 157.48 cm) tl4 20:22 Pain Scale: Adult tl4 MDM: 20:16 Patient medically screened. muriel 21:26 Differential diagnosis: dental caries, gingivitis, dental abscess, pericoronitis, muriel gingivostomatitis. Data reviewed: vital signs, nurses notes. Consideration of Admission/Observation Escalation of care including admission/observation considered. I considered the following discharge prescriptions or medication management in the emergency department Medications were administered in the Emergency Department. See MAR. Test considered but Not performed: Labs: no labs. Care significantly affected by the following chronic conditions: dental , anemia. Administered Medications: 21:38 Drug: Ketorolac IM 60 mg IM once {Note: 30 mg in right deltoid, 30mg in left deltoid.} vc1 Route: IM; Site: Other; 21:39 Follow up: Response: Medication administered at discharge. vc1 21:38 Drug: Cephalexin PO 500 mg PO once Route: PO; vc1 21:39 Follow up: Response: Medication administered at discharge. vc1 Disposition Summary: 01/30/24 21:30 Discharge Ordered Notes: Location: Home muriel Problem: new muriel Symptoms: have improved muriel Condition: Stable muriel Diagnosis - Dental root caries muriel - Dental caries, unspecified muriel Followup: muriel - With: Private Physician - When: 2 - 3 days - Reason: Recheck today's complaints, Continuance of care, Re-evaluation by your physician Followup: muriel - With: Ivan Terry DDS - When: 2 - 3 days - Reason: Recheck today's complaints, Re-evaluation by your physician Discharge Instructions: - Discharge Summary Sheet muriel - Dental Caries, Adult muriel - Dental Pain muriel - Diet and Dental Disease muriel Forms: - Medication Reconciliation Form muriel - Antibiotic Education muriel - Prescription Opioid Use muriel - Patient Portal Instructions muriel - Leadership Thank You Letter muriel Prescriptions: - acetaminophen-codeine 300-30 mg Oral tablet - take 2 tablet ORAL route every 6 hours as needed for pain; 20 tablet; Refills: [facility] 0, Product Selection Permitted - Cephalexin 500 mg Oral Capsule - take 1 capsule ORAL route every 6 hours for 10 days; 40 capsule; Refills: 0, [facility] Product Selection Permitted - Ibuprofen 600 mg Oral Tablet - take 1 tablet ORAL route every 6 hours As needed take with food; 30 tablet; [facility] Refills: 0, Product Selection Permitted Signatures: Jermaine Decker MD MD cha Calcote, Vanessa RN RN vc1 Wagner Cowart RN RN tl4
--- NOTE | 2024-01-30 21:31 | ER ---
Nurse's Notes [facility] Name: Kristy Kline Age: 28 yrs Sex: Female : 1995 Arrival Date: 01/30/2024 Time: 20:11 Bed DX3 Private MD: Diagnosis: Dental root caries;Dental caries, unspecified Presentation: 01/29 20:22 Chief complaint: Patient states: Pt c/o progressively worsening dental pain since last tl4 week. Pt states she has dental cavities to the upper and lower right side. Pt has right side facial swelling. Pt denies fever/chills. Coronavirus screen: At this time, the client does not indicate any symptoms associated with coronavirus-19. Ebola Screen: No symptoms or risks identified at this time. Initial Sepsis Screen: Does the patient meet any 2 criteria? No. Patient's initial sepsis screen is negative. Does the patient have a suspected source of infection? No. Patient's initial sepsis screen is negative. Risk Assessment: Do you want to hurt yourself or someone else? Patient reports no desire to harm self or others. Onset of symptoms was January 29, 2024. 20:22 Method Of Arrival: Ambulatory tl4 20:22 Acuity: TABATHA 4 tl4 Triage Assessment: 20:25 General: Appears uncomfortable, Behavior is calm, cooperative. Pain: Complains of pain tl4 in face. EENT: Reports pain in right jaw. Neuro: Level of Consciousness is awake, alert, obeys commands, Oriented to person, place, time, situation, Moves all extremities. Full function Gait is steady, Speech is normal. Cardiovascular: Capillary refill < 3 seconds Patient's skin is warm and dry. Respiratory: Airway is patent Respiratory effort is even, unlabored, Respiratory pattern is regular, symmetrical. GI: No signs and/or symptoms were reported involving the gastrointestinal system. : No signs and/or symptoms were reported regarding the genitourinary system. Derm: No signs and/or symptoms reported regarding the dermatologic system. Musculoskeletal: No signs and/or symptoms reported regarding the musculoskeletal system. Historical: - Allergies: 20:25 No Known Allergies; tl4 - Home Meds: 20:25 None [Active]; tl4 - PMHx: 20:25 Anemia; tl4 - PSHx: 20:25 section; tl4 - Immunization history:: Adult Immunizations unknown. - Infectious Disease History:: Denies. - Social history:: Smoking status: Patient denies any tobacco usage or history of. - Family history:: not pertinent. Screenin:40 [facility] ED Fall Risk Assessment (Adult) History of falling in the last 3 months, vc1 including since admission No falls in past 3 months (0 pts) Confusion or Disorientation No (0 pts) Intoxicated or Sedated No (0 pts) Impaired Gait No (0 pts) Mobility Assist Device Used No (0 pt) Altered Elimination No (0 pt) Score/Fall Risk Level 0 - 2 = Low Risk Oriented to surroundings, Maintained a safe environment, Educated pt \T\ family on fall prevention, incl call for assistance when getting out of bed. Abuse screen: Denies threats or abuse. Nutritional screening: No deficits noted. Tuberculosis screening: No symptoms or risk factors identified. Vital Signs: 20:22 BP 144 / 79; Pulse 75; Resp 16; Temp 97.3(TE); Pulse Ox 99% on R/A; Weight 90.72 kg; tl4 Height 5 ft. 2 in. ; Pain 10/10; 21:40 BP 138 / 78; Pulse 74; Resp 16; Pulse Ox 100% ; vc1 20:22 Body Mass Index 36.58 (90.72 kg, 157.48 cm) tl4 20:22 Pain Scale: Adult tl4 ED Course: 20:14 Patient arrived in ED. im 20:16 Jermaine Decker MD is Attending Physician. muriel 20:25 Triage completed. tl4 20:26 Arm band placed on right wrist. tl4 21:29 Ivan Terry DDS is Referral Physician. muriel 21:41 seen in diagnostic chair. vc1 21:41 Provided Education on: f/u with dentist. vc1 21:41 No provider procedures requiring assistance completed. Patient did not have IV access vc1 during this emergency room visit. Administered Medications: 21:38 Drug: Ketorolac IM 60 mg IM once {Note: 30 mg in right deltoid, 30mg in left deltoid.} vc1 Route: IM; Site: Other; 21:39 Follow up: Response: Medication administered at discharge. vc1 21:38 Drug: Cephalexin PO 500 mg PO once Route: PO; vc1 21:39 Follow up: Response: Medication administered at discharge. vc1 Medication: 21:41 VIS not applicable for this client. vc1 Outcome: 21:30 Discharge ordered by . muriel 22:06 Discharged to home ambulatory, vc1 22:06 Condition: good 22:06 Discharge instructions given to patient, Instructed on discharge instructions, follow up and referral plans. medication usage, Demonstrated understanding of instructions, follow-up care, medications, Prescriptions given X 3, 22:07 Patient left the ED. vc1 Signatures: Jermaine Decker MD MD cha Calcote, Vanessa RN RN vc1 Angi Oconnor Toni RN RN tl4
[2024-01-30] MEDS ORDERED: CEPHALEXIN 250 MG CAP ONE (21:32)
[2024-01-30] MEDS ORDERED: KETOROLAC 30 MG/ML INJ ONE (21:32)
[2024-01-30 22:41] VITALS: BP 138/78; TEMP 97.3; O2SAT 100
== END 2024-01-30 22:07 | disposition home or self-care (01) ==
LOC: ER 20:11
DX: K02.7 Dental root caries (principal)
CPT/HCPCS: 96372; 99284